=== PATIENT | female | born 1945 | race Caucasian/White ===

== ENCOUNTER → 2018-02-05 11:38 | Outpatient (CLI) | payer MEDICARE, MEDICAID, SELFPAY ==
--- NOTE | 2018-02-05 11:48 | XR_ITS ---
XR shoulder LT min 2V HISTORY: ITS.REASON: LEFT SHOULDER PAIN ORDERING PHYSICIAN: Johnathan Cohen MD PATIENT AGE: 72 years Comparison: None FINDINGS: Hypertrophic changes are present at the acromioclavicular joint with bony spurring projecting inferiorly. There is subacromial stenosis. No fracture or dislocation is evident. No lytic or blastic change. IMPRESSION: Acromioclavicular arthropathy with hypertrophic change and subacromial stenosis which may result in impingement symptomatology. Otherwise negative left shoulder
[2018-02-05 12:22] LABS: Basophils % 0.3 % (0.1-2.0); Eosinophils # 0.1 K/mm3 (0.0-0.4); Eosinophils % 1.8 % (0.1-12.0); Hematocrit 40.5 % (37.0-47.0); Hemoglobin 13.7 g/dL (12.2-16.2); Lymphocytes # 1.5 K/mm3 (0.7-4.5); Lymphocytes % 23.5 K/mm3 (10-50); Mean Corpuscular HGB Conc 33.8 g/dL (31.8-35.4); Mean Corpuscular Hemoglobin 30.2 pg (27.0-31.2); Mean Corpuscular Volume 89.4 fl (81-99); Mean Platelet Volume 8.1 fl (7.4-10.4); Monocytes # 0.4 K/mm3 (0.1-1.0); Monocytes % 5.5 % (1.7-9.3); Neutrophils # 4.3 K/mm3 (1.8-7.8); Neutrophils % 68.8 % (37.0-80.0); Platelet Count 192 K/mm3 (142-424); Red Blood Count 4.54 M/mm3 (4.20-5.40); Red Cell Distribution Width 14.1 % (11.5-17.5); White Blood Count 6.3 K/mm3 (4.8-10.8)
[2018-02-05 13:30] LABS: Alanine Aminotransferase 20 U/L (12-78); Albumin Level 3.3 gm/dL (3.4-5.0); Alkaline Phosphatase 92 U/L (46-116); Anion Gap 13.3 mEq/L (5-15); Aspartate Amino Transferase 20 U/L (15-37); Bilirubin,Total 0.6 mg/dL (0.2-1.0); Blood Urea Nitrogen 24 mg/dL (7-18); Calcium 8.8 mg/dL (8.5-10.1); Carbon Dioxide 26 mmol/L (21.0-32.0); Chloride 105 mmol/L (98-107); Chol/HDL Ratio 3.3 (1-3.5); Cholesterol 127 mg/dL (140-200); Creatinine,Serum 1.06 mg/dL (0.55-1.02); Estimated Glomerular Filt Rate 51 ml/min (>60); Free Thyroxine Index 2.3 ug/dL (5.93-13.13); GFR (African American) 61 ML/MIN (>60); Globulin 3.2 gm/dl (1.3-3.2); Glucose 142 mg/dL (74-106); HDL Cholesterol 38 mg/dL (29-89); LDL Cholesterol 59 mg/dL (0-130); Potassium 4.3 mmoL/L (3.5-5.1); Sodium 140 mmol/L (136-145); T4 (Thyroxine) 7.5 ug/dl (4.7-13.3); Thyroid Stimulating Hormone 0.44 uIU/ml (0.358-3.740); Total Protein,Serum 6.5 gm/dL (6.4-8.2); Triglycerides 150 mg/dL (30-200); Triiodothryronine (T3) Uptake 31 % (31-39); VLDL Cholesterol 30 mg/dL (0-40)
[2018-02-05 15:16] LABS: Hemoglobin A1C 7.1 % (0.0-7.0)
[2018-02-06 18:40] LABS: Vitamin B12 310 pg/mL (232-1245)
== END ==
PROVIDERS: PCP Internal Medicine Adolescent Medicine; Visit Provider Internal Medicine Adolescent Medicine
DX: E03.9 Hypothyroidism, unspecified (principal); E11.42 Type 2 diabetes mellitus with diabetic polyneuropathy; E11.9 Type 2 diabetes mellitus without complications; M25.512 Pain in left shoulder
CPT/HCPCS: 36415; 73030; 80053; 80061; 82607; 83036; 84436; 84443; 84479; 85025

== ENCOUNTER → 2018-02-26 11:43 | Outpatient (CLI) | payer MEDICARE, MEDICAID, SELFPAY | PROVIDERS: PCP Internal Medicine Adolescent Medicine; Visit Provider Internal Medicine Adolescent Medicine | DX: R00.2 Palpitations (principal) | CPT/HCPCS: 93225; 93226 ==

== ENCOUNTER 2018-03-18 13:00 | Outpatient (RCR) | payer MEDICARE, MEDICAID, SELFPAY ==
--- NOTE | 2018-03-05 11:37 | HMH.OTOPEV ---
OT Inpatient Evaluation Rehab OT Outpatient Eval Start: 03/05/18 11:21 Freq: Status: Active Protocol: Document 03/05/18 11:21 TFRY (Rec: 03/05/18 11:37 TFRY [id number]) Electronically Signed By Althea Berry OT 03/05/18 11:21 Outpatient Therapy Subjective History Subjective History THIS IS A 72 YEAR OLD RIGHT HANDED FEMALE REFERRED TO OCCUPATIONAL THERAPY FOR LEFT SHOULDER PAIN. PATIENT REPORTS THAT HER SHOULDER HAS BEEN HURTING FOR THE LAST FEW MONTHS. SHE REPORTS THAT SHE CAN NOT RECALL DOING ANYTHING TO HER SHOULDER. Chief Complaint Pain Symptom Type Ache Sharp Symptoms Relieved By Rest/Positioning Symptoms Aggravated By Physical Activity Prior Functional Limitations None Current Functional Limitations Reaching Lifting Housework Dressing Sleeping Symptom Description Constant and Continuous Level of pain today (0-10) 8 Pain scale - at its best (0-10) 2 Pain scale - at its worst (0-10) 10 Shoulder/Elbow Eval Shoulder Objective Measurements Palpation Tenderness tenderness shoulder exam standard left Shoulder Palpation Findings Tenderness Shoulder ROM Left Shoulder ROM Limitations Pain Shoulder Abduction Active Range of 45 Motion (degrees) Shoulder Abduction Passive Range of 85 Motion (degrees) Shoulder Flexion Active Range of Motion 40 (degrees) Query Text: Shoulder Flexion Passive Range of Motion 90 (degrees) Shoulder External Rotation Active Range 10 of Motion (degrees) Shoulder External Rotation Passive Range 20 of Motion (degrees) Shoulder Internal Rotation Active Range WFL of Motion (degrees) Shoulder Internal Rotation Passive Range WFL of Motion (degrees) pain with active ROM shoulder exam left standard pain with passive ROM shoulder exam left standard decreased ROM shoulder exam standard left Shoulder MMT Shoulder Abduction Strength Grade 2+ Poor+ Shoulder Flexion Strength Grade 2+ Poor+ Shoulder External Rotation Strength 2 Poor Grade Shoulder Internal Rotation Strength 3 Fair Grade Shoulder Strength Patient Testing Sitting Position Shoulder Special Tests im
== END 2018-03-18 13:01 | disposition home or self-care (01) ==
LOC: OT 13:00
PROVIDERS: Family Provider Internal Medicine Adolescent Medicine; PCP Internal Medicine Adolescent Medicine; Visit Provider Internal Medicine Adolescent Medicine
DX: M25.512 Pain in left shoulder (principal)
CPT/HCPCS: 97014; 97110; 97165; G0283

== ENCOUNTER → 2018-04-05 13:39 | Outpatient (CLI) | payer MEDICARE, MEDICAID, SELFPAY ==
--- NOTE | 2018-04-05 14:16 | MR_ITS ---
MR shoulder LT wo con Ordering Physician: Johnathan Cohen MD Patient Age: 72 years: Female HISTORY: ITS.REASON: LT SHOULDER PAIN Left anterior shoulder pain unable to left arm symptoms 2 months TECHNIQUE: COMPARISON :Plain films left shoulder 02/05/2018 FINDINGS Rotator cuff tears and abnormalities:. Areas of focal rotator cuff tear and signal abnormality but without prominent tendon retraction as of yet Supraspinatus tendon,:.. Significant Tear at its insertion. Likely full-thickness tear component but the thin superior fibers may remain intact along with prominent tendon retraction as of yet. Supraspinatus tendon thickening and prominent tendinopathy associated. Associated minimal fluid at subdeltoid subacromial bursa along with small joint effusion. Subscapularis tendon. Prominent Thickened reflecting generous tendinopathy. Interstitial tear and undersurface tear at its insertion, with likely small full-thickness component but no prominent tendon retraction subscapularis. Most pronounced insertional erosions & osseous irregularities seen at this region beneath subscapularis insertion- Infraspinatus tendon. Insertional erosions mild tendinopathy at critical zone and insertion. Possible partial undersurface tear here at insertion. Teres minor component of rotator cuff. Intact &. Unremarkable ---- .. Biceps tendon demonstrates abnormal increased interstitial signal as it passes above the bicipital groove and appears mildly enlarged. Suspect biceps tendinopathy here as well. Prominent AC joint hypertrophy & arthropathy fluid at the AC joint. The bulbous hypertrophic AC joint encroaches impinges and indents the supraspinatus as it passes beneath this area at medial outlet. There is downward sloping of small acromion with narrowing of the subacromial space to 6 mm or less in some regions.q, subacromial stenosis. Osseous glenoid intact. The posterior labrum grossly intact. Anterior labrum intact with some possible mild fraying & degeneration. IMPRESSION: ...... 1. Rotator cuff tear & tendinopathy but without prominent tendon retraction as of yet. .... Prominent tendinopathy and with full-thickness tear at the Supraspinatus Tendon insertion. ... Also prominent tendinopathy with tear involving superior margin of Subscapularis Tendon Prominent reactive bone changes and insertional erosions at the subscapularis insertion 2. Biceps tendinopathy 3. Prominent AC joint arthropathy and hypertrophy which encroaches upon the supraspinatus tendon as it passes at medial outlet. 4. Subacromial stenosis
== END ==
PROVIDERS: Family Provider Internal Medicine Adolescent Medicine; PCP Internal Medicine Adolescent Medicine; Visit Provider Internal Medicine Adolescent Medicine
DX: M25.512 Pain in left shoulder (principal)
CPT/HCPCS: 73221

== ENCOUNTER → 2019-05-25 11:19 | Outpatient (CLI) | payer MEDICARE, SELFPAY ==
[2019-05-25 12:15] LABS: Basophils % 0.5 % (0.1-2.0); Eosinophils # 0.1 K/mm3 (0.0-0.4); Eosinophils % 2.3 % (0.1-12.0); Hematocrit 36.8 % (37.0-47.0); Hemoglobin 12.1 g/dL (12.2-16.2); Lymphocytes # 1.6 K/mm3 (0.7-4.5); Mean Corpuscular HGB Conc 32.8 g/dL (31.8-35.4); Mean Corpuscular Hemoglobin 29.3 pg (27.0-31.2); Mean Corpuscular Volume 89.5 fl (81-99); Monocytes # 0.4 K/mm3 (0.1-1.0); Monocytes % 7.5 % (1.7-9.3); Neutrophils # 2.8 K/mm3 (1.8-7.8); Neutrophils % 57.7 % (37.0-80.0); Platelet Count 217 K/mm3 (142-424); Red Blood Count 4.11 M/mm3 (4.20-5.40); Red Cell Distribution Width 15.5 % (11.5-17.5); White Blood Count 4.8 K/mm3 (4.8-10.8)
[2019-05-25 12:28] LABS: Hemoglobin A1C 8.5 % (0.0-7.0)
[2019-05-25 14:45] LABS: Alanine Aminotransferase 22 U/L (12-78); Albumin Level 3.1 gm/dL (3.4-5.0); Alkaline Phosphatase 96 U/L (46-116); Anion Gap 13.4 mEq/L (5-15); Aspartate Amino Transferase 17 U/L (15-37); Bilirubin,Total 0.4 mg/dL (0.2-1.0); Blood Urea Nitrogen 19 mg/dL (7-18); Calcium 8.7 mg/dL (8.5-10.1); Carbon Dioxide 26 mmol/L (21.0-32.0); Chloride 108 mmol/L (98-107); Chol/HDL Ratio 2.9 (1-3.5); Cholesterol 95 mg/dL (140-200); Creatinine,Serum 1.17 mg/dL (0.55-1.02); Estimated Glomerular Filt Rate 45 ml/min (>60); GFR (African American) 55 ML/MIN (>60); Globulin 3.1 gm/dl (1.3-3.2); Glucose 102 mg/dL (74-106); HDL Cholesterol 33 mg/dL (29-89); LDL Cholesterol 35 mg/dL (0-130); Potassium 4.4 mmoL/L (3.5-5.1); Sodium 143 mmol/L (136-145); Thyroid Stimulating Hormone 1.85 uIU/ml (0.358-3.740); Total Protein,Serum 6.2 gm/dL (6.4-8.2); Triglycerides 134 mg/dL (30-200); VLDL Cholesterol 27 mg/dL (0-40)
[2019-05-27 11:43] LABS: Vitamin B12 324 pg/mL (232-1245)
== END ==
PROVIDERS: Visit Provider Internal Medicine Adolescent Medicine
DX: E11.42 Type 2 diabetes mellitus with diabetic polyneuropathy (principal); E03.9 Hypothyroidism, unspecified
CPT/HCPCS: 36415; 80053; 80061; 82607; 83036; 84443; 85025

== ENCOUNTER 2019-10-20 10:03 | Inpatient (IN) ==
[2019-10-20 10:34] LABS: Basophils % 0.2 % (0.1-2.0); Eosinophils # 0.2 K/mm3 (0.0-0.4); Eosinophils % 1.6 % (0.1-12.0); Hematocrit 42.3 % (37.0-47.0); Hemoglobin 13.4 g/dL (12.2-16.2); Lymphocytes # 2.5 K/mm3 (0.7-4.5); Lymphocytes % 18.6 % (10-50); Mean Corpuscular HGB Conc 31.8 g/dL (31.8-35.4); Mean Corpuscular Volume 93.8 fl (81-99); Monocytes # 0.6 K/mm3 (0.1-1.0); Monocytes % 4.3 % (1.7-9.3); Neutrophils # 10.1 K/mm3 (1.8-7.8); Neutrophils % 75.3 % (37.0-80.0); Platelet Count 306 K/mm3 (142-424); Red Blood Count 4.51 M/mm3 (4.20-5.40); Red Cell Distribution Width 14.8 % (11.5-17.5); White Blood Count 13.4 K/mm3 (4.8-10.8)
[2019-10-20 10:52] LABS: Alanine Aminotransferase 30 U/L (12-78); Albumin Level 3.2 gm/dL (3.4-5.0); Albumin/Globulin Ratio 0.9 (1.1-1.8); Alkaline Phosphatase 85 U/L (46-116); Anion Gap 19.1 mEq/L (5-15); Aspartate Amino Transferase 20 U/L (15-37); Bilirubin,Total 0.5 mg/dL (0.2-1.0); Blood Urea Nitrogen 28 mg/dL (7-18); Calcium 8.7 mg/dL (8.5-10.1); Carbon Dioxide 21 mmol/L (21.0-32.0); Chloride 106 mmol/L (98-107); Globulin 3.5 gm/dl (1.3-3.2); Glucose 277 mg/dL (74-106); Sodium 142 mmol/L (136-145); Thyroid Stimulating Hormone 1.27 uIU/ml (0.358-3.740); Total Protein,Serum 6.7 gm/dL (6.4-8.2)
[2019-10-20 11:13] LABS: Microscopic, Urine URINE MICROSCOPIC (MICROSCOPIC)
[2019-10-20 11:16] LABS: Appearance,Urine SL CLOUDY (Clear); Bilirubin,Urine Negative (Negative); Blood, Urine 3+ (Negative); Color,Urine YELLOW (Yellow); Glucose,Urine (UA) Negative (Negative); Ketones,Urine Negative (Negative); Leukocyte Esterase,Urine 2+ (Negative); PH,Urine 5.5 (5.0-8.5); Protein,Urine 2+ (Negative); Specific Gravity, Urine >= 1.030 (1.005-1.030); Urobilinogen,Urine 0.2 EU/dl (0.2)
[2019-10-20 11:26] LABS: Bacteria,Urine 1+ /lpf; Squamous Epithelial Cell,Urine Occasional #/hpf (0-5)
--- NOTE | 2019-10-20 12:24 | Emergency Department Note ---
ED Disposition Clinical Impression: Sepsis, UTI (urinary tract infection), SVT (supraventricular tachycardia) Disposition: Admitted as Observation Condition on Discharge: Fair Additional Instructions: admit to Dr. Mejía Referrals: Ye Mejía MD [Primary Care Provider] - - Critical Care Critical Care Time: Yes Attestation: On 10/20/19, the high probability of a clinically significant, sudden or life threatening deterioration of the following system(s) required my full and direct attention, intervention and personal management. The time I documented below is in addition to time spent performing reported procedures but includes the following listed in this critical care notation. Total Critical Care Time: 25 Vital system(s) involved:: Circulatory Failure My critical care processes included: Assessment & monitoring of V/S Medical Decision Making - Gibran Inquiry Pt receiving controlled substance: No Gibran was queried for this patient: No Vital Signs: 10/20/19 10:04 10/20/19 10:30 10/20/19 11:00 Temperature 98.2 F Temperature Source Oral Pulse Rate [Right] 158 H 70 84 Respiratory Rate 20 20 Blood Pressure [Right Arm] 90/61 L 120/52 L 112/52 L Blood Pressure Mean [Right Arm] 70 74 72 Blood Pressure Position [Right Arm] Sitting 02 Sat by Pulse Oximetry 94 L 94 L Oxygen Delivery Method Room Air Room Air 10/20/19 11:07 10/20/19 11:29 10/20/19 12:00 Temperature Temperature Source Pulse Rate [Right] 80 82 82 Respiratory Rate 20 20 20 Blood Pressure [Right Arm] 109/69 L 129/52 L 114/41 L Blood Pressure Mean [Right Arm] 82 77 65 Blood Pressure Position [Right Arm] 02 Sat by Pulse Oximetry 94 L 91 L 96 Oxygen Delivery Method Room Air - Lab Data Lab Results 10/20/19 10:20: WBC 13.4 H, RBC 4.51, Hgb 13.4, Hct 42.3, MCV 93.8, MCH 29.8, MC HC 31.8, RDW 14.8, Plt Count 306, MPV 8.0, Neut % (Auto) 75.3, Lymph % (Auto) 18.6, [place] % (Auto) 4.3, Eos % (Auto) 1.6, Baso % (Auto) 0.2, Neut # (Auto) 10.1 H, Lymph # (Auto) 2.5, [place] # (Auto) 0.6, Eos # (Auto) 0.2, Baso # (Auto) 0.0 10/20/19 10:20: Sodium 142, Potassium 4.1, Chloride 106, Carbon Dioxide 21, Anion Gap 19.1 H, BUN 28 H, Creatinine 1.80 H, Estimated Creat Clear 39, Estimated GFR 27 L, Est GFR ( Amer) 33 L, Glucose 277 H, Calcium 8.7, Total Bilirubin 0.5, AST 20, ALT 30, Alkaline Phosphatase 85, Troponin I < 0.02, Total Protein 6.7, Albumin 3.2 L, Globulin 3.5 H, Albumin/Globulin Ratio 0.9 L, TSH 1.27 D, Thyroxine (T4) 7.5 10/20/19 10:20: Lactate 4.6 H 10/20/19 10:20: B-Natriuretic Peptide 227 H 10/20/19 11:00: Urine Color Yellow, Urine Appearance Sl cloudy, Urine pH 5.5, Ur Specific [place] >= 1.030, Urine Protein 2+, Urine Glucose (UA) Negative, Urine Ketones Negative, Urine Blood 3+, Urine Nitrate Positive, Urine Bilirubin Negative, Urine Urobilinogen 0.2, Ur Leukocyte Esterase 2+ A, Urine RBC 10-20, Urine WBC 5-10, Ur Squamous Epith Cells Occasional, Urine Bacteria 1+ Result diagrams: 10/20/19 10:20 10/20/19 10:20 Orders (Tests/Meds): ED MEDICATIONS Generic Name Dose Route Start Last Admin Trade Name Freq PRN Reason Stop Dose Admin Sodium Chloride 2,720 mls @ 1,360 mls/hr 10/20/19 10:50 10/20/19 10:30 Sod Chlor 0.9% 1000ml Bag 30 ml/kg infuse over 2 hr (2720 ml) 10/20/19 12:49 1,360 mls/hr IV Administration .Q2H ONE Ceftriaxone Sodium 1 gm/ 50 mls @ 100 mls/hr 10/20/19 11:15 10/20/19 11:08 Sodium Chloride IV 11/03/19 11:14 100 mls/hr Q24H BEATRIZ Administration Protocol Discontinued Medications Generic Name Dose Route Start Last Admin Trade Name Freq PRN Reason Stop Dose Admin Diltiazem HCl 10 mg 10/20/19 10:27 10/20/19 10:30 Cardizem 125mg/25ml Vial IVP 10/20/19 10:28 10 mg ONCE ONE Administration Sodium Chloride 1,000 mls @ 999 mls/hr 10/20/19 10:30 10/20/19 10:52 Sod Chlor 0.9% 1000ml Bag IV 10/20/19 11:30 Not Given .Q1H1M BEATRIZ ORDERS Category Date Time Status Troponin I Q3H Lab 10/20/19 13:30 Ordered Troponin I Q3H Lab 10/20/19 16:30 Ordered Blood Culture Stat Micro 10/20/19 10:20 Received Urine Culture Stat Micro 10/20/19 11:00 Received Medical Decision Narrative: Patient was hypotensive and tachycardic when she presented to the ED. Given a fluid bolus followed by bolus of 20 mg of Cardizem IV. Her rate did convert her heart rate that went back down to 73 bpm and blood pressure improved to 120/70. Assessment of the patient her card cardiopulmonary exam was within normal limits. Patient is doing much better. Physical exam after the admitted initial treatment is back to normal. General Adult HPI - General Chief complaint: Weakness Stated complaint: weak,blood pressure problem Time Seen by Provider: 10/20/19 10:03 Mode of Arrival: Wheelchair Source of Information: Patient, Significant Other, Relative Limitations: No Limitations Description of Symptoms (Recalled from ER Triage Doc. by RN): PT SENT FROM DR LEMUS OFFICE FOR LOW B/P AND WEAKNESS. PT STATES SHE HAS DIARRHEA, VOMITING, AND COUGH FOR 3 DAYS. - History of Present Illness HPI narrative: Her primary care's office this morning and they were unable to obtain a blood pressure. He looked acutely ill in office and was sent here for evaluation. The ED her blood pressure was 88/16. And she was presently in SVT with a heart rate of 166 otherwise patient states that she has been fatigued more than usual over the last 3 to 4 days. Had episode of nausea and vomiting as well. Denies any pain. States that her feet were turning purple. No history was obtained by relatives. Denied any other symptoms. no recent fevers. Onset (ago): day(s) Severity: severe Severity scale (1-10): 8 Consistency: constant Relieving factors: none Exacerbating factors: none Associated symptoms: nausea/vomiting Treatments prior to arrival: none - Related Data Home Medications Medication Instructions Recorded Confirmed Levothyroxine Sodium 12.5 mcg PO DAILY 10/20/19 10/20/19 [Levothyroxine 25mcg (0.025mg) Tab] carvediloL [Carvedilol 6.25mg Tab] 6.25 mg PO DAILY 10/20/19 10/20/19 Allergies Allergy/AdvReac Type Severity Reaction Status Date / Time celecoxib [From CELEBREX] Allergy Mild Verified 10/20/19 10:29 naproxen [NAPROXEN] Allergy Mild Verified 10/20/19 10:29 sertraline [SERTRALINE] Allergy Mild Verified 10/20/19 10:29 latex [LATEX] Allergy Unknown Verified 10/20/19 10:29 valdecoxib [VALDECOXIB] Allergy Unknown Verified 10/20/19 10:29 [facility] History - Hepatitis A Screen Drug use history?: No High risk sexual behaviors?: No History of sexually transmitted infection?: No Currently employed?: No Childcare worker?: No Do you have indoor plumbing?: Yes Do you have electricity?: Yes Attestation statement:: This patient has been screened for Hepatitis A risk factors. I have reviewed the patient's past medical history: Yes ROS Obtained: Yes All systems reviewed & no additional complaints - Constitutional Constitutional: Reports system reviewed and no additional complaints, except as docu - Eyes Eyes: Reports system reviewed and no additional complaints, except as docu - ENT Ears, Nose, Mouth, and Throat: Reports system reviewed and no additional complaints, except as docu - Cardiovascular Cardiovascular: Reports system reviewed and no additional complaints, except as docu - Respiratory Respiratory: Yes system reviewed and no additional complaints, except as docu - Gastrointestinal Gastrointestingal: Reports: system reviewed and no additional complaints, except as docu - Genitourinary Male Genitourinary: Reports system reviewed and no additional complaints, except as docu Female Genitourinary: Reports system reviewed and no additional complaints, except as docu - Musculoskeletal Musculoskeletal: Reports system reviewed and no additional complaints, except as docu - Integumentary/Breasts Skin/Breast: Reports system reviewed and no additional complaints, except as docu - Neurologic Neurologic: Reports system reviewed and no additional complaints, except as docu - Endocrine Endocrine: Reports system reviewed and no additional complaints, except as docu - Hematologic/Lymphatic Henatologic/Lymphatic: Reports system reviewed and no additional complaints, except as docu - Allergic/Immunologic Allergic/Immunologic: Reports system reviewed and no additional complaints, except as docu Physical Exam - General General appearance: alert, lethargic - Head Head exam: atraumatic - Eye Eye exam: Present: normal appearance, PERRL, EOMI - ENT ENT exam: Present: normal exam - Neck Neck exam: Present: normal inspection - Chest Chest inspection: Present: normal inspection - Respiratory Respiratory exam: Present: normal lung sounds bilaterally - Cardiovascular Cardiovascular exam: Present: tachycardia, irregular rhythm - Abdominal Exam Abdominal exam: Present: soft - Extremities Exam Extremities exam: Present: other - Back Exam Back exam: Present: normal inspection - Neurological Exam Neurological exam: Present: alert - Psychiatric Psychiatric exam: Present: normal affect - Lymphatic Lymphatic Findings: no adenopathy
--- NOTE | 2019-10-20 13:59 | Pharmacy Consult Notes ---
[facility] Pharmacy VTE Monitoring - Patient Demographics Admission date: 10/20/19 Report Date: 10/20/19 Time: 13:59 Allergies/Adverse Reactions: Patient Allergies celecoxib [From CELEBREX] Allergy (Mild, Verified 10/20/19 10:29) naproxen [NAPROXEN] Allergy (Mild, Verified 10/20/19 10:29) sertraline [SERTRALINE] Allergy (Mild, Verified 10/20/19 10:29) latex [LATEX] Allergy (Unknown, Verified 10/20/19 10:29) valdecoxib [VALDECOXIB] Allergy (Unknown, Verified 10/20/19 10:29) Height: 1.68 m Weight: 90.718 kg Patient Problems: Current Active Problems Sepsis (Acute) UTI (urinary tract infection) (Acute) SVT (supraventricular tachycardia) (Acute) - VTE Risk Labs: VTE Related Lab Results Hgb 13.4 g/dL (12.2-16.2) 10/20/19 10:20 Hct 42.3 % (37.0-47.0) 10/20/19 10:20 Plt Count 306 K/mm3 (142-424) 10/20/19 10:20 BUN 28 mg/dL (7-18) H 10/20/19 10:20 Creatinine 1.80 mg/dL (0.55-1.02) H 10/20/19 10:20 Estimated Creat Clear 39 mL/min (50-200) 10/20/19 10:20 - Prophylaxis VTE Prophylaxis Ordered?: Yes Types of VTE Prophylaxis: TEDS Knee High Location of Applied Device: Bilateral Lower Extremeties
--- NOTE | 2019-10-20 17:22 | History & Physical Report ---
*Admission Date: 10/20/19 *Chief complaint: hypotension, cough, weakness *History of present illness: Ms. Thomas is a 73-year-old female who presented to clinic this morning with her daughter due to fatigue, worsening cough over the past week, and diarrhea for the past few days. On initial assessment we were unable to obtain a blood pressure and so she was transferred to the ER emergently for further assessment and work-up. In the ER her initial blood pressure was 88/16 and she was in SVT with a heart rate of approximately 160. She was given a fluid bolus and 20 mg of IV Cardizem. She responded briskly with conversion to normal sinus rhythm and improvement in her blood pressure to approximately 120/70. Further work-up showed lab abnormalities concerning for elevated lactate, kidney dysfunction, urine concerning for UTI, and chest x-ray concerning for CHF exacerbation with increased pulmonary vasculature and cephalization left worse than right and bilateral lower lung field opacification. Admitted to medicine for further management of her acute conditions. [facility] History I have reviewed the patient's past medical history: Yes Medical History: Reports:: Diabetes Mellitus Type 1, Hyperlipidemia, Peripheral Vascular Disease Denies:: MRSA *Have you ever received a pneumonia vaccine?: Yes *Have you received a flu vaccine this season?: Yes Comment:: hyperthyroidism Other Surgeries: Yes: Cholecystectomy, Thyroidectomy, Tubal Ligation - *Social History Smoking Status: Never smoker Alcohol Intake: never *Occupational Status:: retired Household Members: spouse *Travel in the last 8 weeks: None Family Hx:: Unable to obtain Review of Systems - Review of Systems Review of systems:: pertinent systems reviewed and negative unless documented below (13 point review of systems performed, pertinent negatives and positives as per HPI) Meds Home Medications Medication Instructions Recorded Confirmed Type Atorvastatin Calcium [Atorvastatin 20 mg PO HS 10/20/19 10/20/19 History 20mg Tab] Insulin Glargine,Hum.rec.anlog 50 unit SQ DAILY 10/20/19 10/20/19 History [Toujeo Max Solostar] Insulin Regular, Human [Novolin R 0 unit SQ NEEDED PRN 10/20/19 10/20/19 History Flexpen] Levothyroxine Sodium 12.5 mcg PO DAILY 10/20/19 10/20/19 History [Levothyroxine 25mcg (0.025mg) Tab] carvediloL [Carvedilol 6.25mg Tab] 6.25 mg PO BID 10/20/19 10/20/19 History Allergies Allergy/AdvReac Type Severity Reaction Status Date / Time celecoxib [From CELEBREX] Allergy Mild Verified 10/20/19 10:29 naproxen [NAPROXEN] Allergy Mild Verified 10/20/19 10:29 sertraline [SERTRALINE] Allergy Mild Verified 10/20/19 10:29 latex [LATEX] Allergy Unknown Verified 10/20/19 10:29 valdecoxib [VALDECOXIB] Allergy Unknown Verified 10/20/19 10:29 metformin AdvReac Severe Diarrhea Verified 10/20/19 14:12 Exam Vital signs and Labs for Last 24 Hours: Temp Pulse Resp BP Pulse Ox 98.1 F 84 18 107/72 L 94 L 10/20/19 14:00 10/20/19 17:00 10/20/19 17:00 10/20/19 17:00 10/20/19 17:00 Laboratory Results - last 24 hr 10/20/19 10:20: WBC 13.4 H, RBC 4.51, Hgb 13.4, Hct 42.3, MCV 93.8, MCH 29.8, MCHC 31.8, RDW 14.8, Plt Count 306, MPV 8.0, Neut % (Auto) 75.3, Lymph % (Auto) 18.6, [place] % (Auto) 4.3, Eos % (Auto) 1.6, Baso % (Auto) 0.2, Neut # (Auto) 10.1 H, Lymph # (Auto) 2.5, [place] # (Auto) 0.6, Eos # (Auto) 0.2, Baso # (Auto) 0.0 10/20/19 10:20: Sodium 142, Potassium 4.1, Chloride 106, Carbon Dioxide 21, Anion Gap 19.1 H, BUN 28 H, Creatinine 1.80 H, Estimated Creat Clear 39, Estimated GFR 27 L, Est GFR ( Amer) 33 L, Glucose 277 H, Calcium 8.7, Total Bilirubin 0.5, AST 20, ALT 30, Alkaline Phosphatase 85, Troponin I < 0.02, Total Protein 6.7, Albumin 3.2 L, Globulin 3.5 H, Albumin/Globulin Ratio 0.9 L, TSH 1.27 D, Thyroxine (T4) 7.5 10/20/19 10:20: Lactate 4.6 H 10/20/19 10:20: B-Natriuretic Peptide 227 H 10/20/19 11:00: Urine Color Yellow, Urine Appearance Sl cloudy, Urine pH 5.5, Ur Specific [place] >= 1.030, Urine Protein 2+, Urine Glucose (UA) Negative, Urine Ketones Negative, Urine Blood 3+, Urine Nitrate Positive, Urine Bilirubin Negative, Urine Urobilinogen 0.2, Ur Leukocyte Esterase 2+ A, Urine RBC 10-20, Urine WBC 5-10, Ur Squamous Epith Cells Occasional, Urine Bacteria 1+ 10/20/19 14:50: Lactate 1.1 I & O for Last 24 hours: Intake & Output 10/17/19 10/18/19 10/19/19 10/20/19 23:59 23:59 23:59 23:59 Intake Total 3500 / 3500 Balance 3500 / 3500 Weight 110.421 kg - Constitutional no acute distress, obese, chronically ill appearing - *Routine HEENT Exam Head: Present: normocephalic Eye: Present: EOMI, PERRL ENT: Present: mucous membranes moist - *Routine Neck Exam Present: supple. Absent: lymphadenopathy - *Routine Respiratory Exam Comments: Good air movement bilaterally, fine crackles bilateral posterior bases with no wheeze or rhonchi - *Routine Cardiovascular Exam Present: RRR - *Routine Abdominal Exam Present: soft, normoactive bowel sounds, tenderness (Diffuse nonfocal tenderness, no CVA tenderness) - *Routine Extremities Exam Absent: cyanosis, clubbing, edema - *Routine Skin Exam Present: cyanosis (Bilateral feet; present initially on exam in clinic, resolved after fluid resuscitation and improvement in heart rate), warm. Absent: rash Comments: Bruise with swelling and hematoma medial right lower extremity approximately 3 cm in diameter - *Routine Neurological Exam Present: alert, oriented X3 Assessment and Plan (1) History of hyperthyroidism Current visit: Yes Status: Chronic Category: Medical Code(s): Z86.39 - Personal history of other endocrine, nutritional and metabolic disease Given history of hyperthyroidism, status post PTU and partial thyroidectomy, in the setting of SVT will obtain TSH and thyroid labs to assess for abnormalities as potential underlying cause for her tachyarrhythmia (2) Insulin dependent diabetes mellitus Current visit: Yes Status: Chronic Category: Medical Code(s): E11.9 - Type 2 diabetes mellitus without complications; Z79.4 - terminal superintendent (current) use of insulin Continue insulin regimen with basal and sliding scale. Diabetic diet. A1c pending in the morning (3) SVT (supraventricular tachycardia) Current visit: Yes Status: Acute Category: Medical Code(s): I47.1 - Supraventricular tachycardia Presented with hypotension and tachycardia. Converted with IV dose of diltiazem. Improved with volume resuscitation. Suspect secondary to infection and sepsis. Will monitor on telemetry overnight (4) Sepsis Current visit: Yes Status: Acute Category: Medical Code(s): A41.9 - Sepsis, unspecified organism Met criteria with leukocytosis, tachycardia, source of infection. Antibiotics and cultures per protocol, fluids per protocol. (5) UTI (urinary tract infection) Current visit: Yes Status: Acute Qualifiers: Urinary tract infection type: acute pyelonephritis Qualified Code(s): N10 - Acute pyelonephritis Category: Medical Code(s): N39.0 - Urinary tract infection, site not specified In the setting of nausea, vomiting, diarrhea, tachyarrhythmia, leukocytosis. Broad-spectrum antibiotics. Blood and urine culture pending. Will monitor for improvement. (6) Acute kidney injury Current visit: Yes Status: Acute Category: Medical Code(s): N17.9 - Acute kidney failure, unspecified Suspect due to SVT, hypotension, prerenal status. Monitor for improvement with fluid resuscitation and correction of tachyarrhythmia - Assessment and plan all Dx Assessment and Plan for all problems:: 73-year-old chronically ill female who presented with SVT, suspected pyelonephritis, hypotension. Improvement with fluids and initiation of antibiotics. Monitor on telemetry overnight. Prognosis poor, condition guarded.
[2019-10-21 05:56] LABS: Basophils % 0.2 % (0.1-2.0); Eosinophils # 0.1 K/mm3 (0.0-0.4); Eosinophils % 0.9 % (0.1-12.0); Hematocrit 31.6 % (37.0-47.0); Lymphocytes # 1.8 K/mm3 (0.7-4.5); Lymphocytes % 26.5 % (10-50); Mean Corpuscular HGB Conc 32.8 g/dL (31.8-35.4); Mean Corpuscular Volume 90.7 fl (81-99); Mean Platelet Volume 8.8 fl (7.4-10.4); Monocytes # 0.4 K/mm3 (0.1-1.0); Monocytes % 6.3 % (1.7-9.3); Neutrophils # 4.4 K/mm3 (1.8-7.8); Neutrophils % 66.1 % (37.0-80.0); Platelet Count 174 K/mm3 (142-424); Red Blood Count 3.49 M/mm3 (4.20-5.40); Red Cell Distribution Width 14.8 % (11.5-17.5); White Blood Count 6.6 K/mm3 (4.8-10.8)
[2019-10-21 06:06] LABS: Albumin Level 2.4 gm/dL (3.4-5.0); Albumin/Globulin Ratio 0.8 (1.1-1.8); Anion Gap 13.5 mEq/L (5-15); Bilirubin,Total 0.4 mg/dL (0.2-1.0); Globulin 2.9 gm/dl (1.3-3.2); Total Protein,Serum 5.3 gm/dL (6.4-8.2)
[2019-10-21 06:18] LABS: Free Thyroxine Index 2.3 ug/dL (5.93-13.13); Thyroid Stimulating Hormone 0.35 uIU/ml (0.358-3.740)
[2019-10-21 06:32] LABS: Hemoglobin 10.4 g/dL (12.2-16.2)
[2019-10-21 06:33] LABS: Calcium 7.4 mg/dL (8.5-10.1)
--- NOTE | 2019-10-21 08:17 | Consult Report ---
History of Present Illness Consult date: 10/21/19 Requesting physician: Ye Mejía Consult reason: atrial fibrillation Chief complaint: A. fib with RVR vs SVT Additional Medical History:: 1. DM, diagnosed >20 yrs ago, insulin treated 2. General debility 3. FH of CAD in father 4. History of HTN A. Echo, 09/2016, LVEF greater than 55% with no wall motion abnormalities. Mild mitral annular calcification without MVP. Trace MR noted. Moderate aortic valve calcification with no regurgitation noted. 5. History of hyperthyroidism A. History of PTU therapy and partial thyroidectomy History of present illness: 73-year-old white female with longstanding diabetes presented to primary care office for evaluation of 1 week history of weakness and fatigue. Patient also relates intermittent episodes of fast heart rates which she could feel in her abdomen with associated discomfort into the upper chest and neck. Symptoms have even awoken her from sleep. 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 Patient denies any syncope or near syncope but has felt weak and fatigued. Patient's pulse in the office was noted to be thready with a tachycardic rate and was sent to the ER for further evaluation. EKG in the ER was read as an SVT but may have been A. fib with RVR with rate in the 160 bpm range. Patient's blood pressure was systolically was in the 80s and labs revealed evidence of UTI and dehydration. After IV fluids patient did convert to sinus rhythm on EKG but then later on did have an episode of atrial fibrillation with a slower rate. Cardiology consulted for evaluation of arrhythmia. Patient denies any prior history of cardiology work-up. She denies history of tobacco use. Patient's thyroid panel is inconclusive over the last 2 draws but seems to indicate some hyperthyroidism at this time. [facility] History Medical History: Reports:: Diabetes Mellitus Type 1, Hyperlipidemia, Peripheral Vascular Disease Denies:: MRSA *Have you ever received a pneumonia vaccine?: Yes *Have you received a flu vaccine this season?: Yes Other Surgeries: Yes: Cholecystectomy, Thyroidectomy, Tubal Ligation - *Social History Smoking Status: Never smoker Alcohol Intake: never *Occupational Status:: retired Household Members: spouse *Travel in the last 8 weeks: None Family Hx:: Unable to obtain Meds Home Medications Medication Instructions Recorded Confirmed Type Atorvastatin Calcium [Atorvastatin 20 mg PO HS 10/20/19 10/20/19 History 20mg Tab] Insulin Glargine,Hum.rec.anlog 50 unit SQ DAILY 10/20/19 10/20/19 History [Spencer Edwardsaaron] Insulin Regular, Human [Novolin R 0 unit SQ NEEDED PRN 10/20/19 10/20/19 H istory Flexpen] Levothyroxine Sodium 12.5 mcg PO DAILY 10/20/19 10/20/19 History [Levothyroxine 25mcg (0.025mg) Tab] carvediloL [Carvedilol 6.25mg Tab] 6.25 mg PO BID 10/20/19 10/20/19 History Allergies Allergy/AdvReac Type Severity Reaction Status Date / Time celecoxib [From CELEBREX] Allergy Mild Verified 10/20/19 10:29 naproxen [NAPROXEN] Allergy Mild Verified 10/20/19 10:29 sertraline [SERTRALINE] Allergy Mild Verified 10/20/19 10:29 latex [LATEX] Allergy Unknown Verified 10/20/19 10:29 valdecoxib [VALDECOXIB] Allergy Unknown Verified 10/20/19 10:29 metformin AdvReac Severe Diarrhea Verified 10/20/19 14:12 Review of Systems - Review of Systems Review of systems:: pertinent systems reviewed and negative unless documented below - Constitutional Reports malaise, Reports weakness - *Cardiovascular Reports chest pain, Reports fast heart rate - *Respiratory Reports cough, Reports shortness of breath - *Gastrointestinal Reports loose stools, Reports nausea, Reports vomiting - *Genitourinary Denies blood in urine - *Musculoskeletal Reports joint pain, Reports back pain - *Neurologic Reports weakness Exam Vital signs and Labs for Last 24 Hours: Temp Pulse Resp BP Pulse Ox 98.4 F 71 18 143/66 H 96 10/20/19 20:00 10/21/19 06:00 10/20/19 20:00 10/21/19 06:00 10/21/19 06:00 Laboratory Results - last 24 hr 10/20/19 10:20: WBC 13.4 H, RBC 4.51, Hgb 13.4, Hct 42.3, MCV 93.8, MCH 29.8, MCHC 31.8, RDW 14.8, Plt Count 306, MPV 8.0, Neut % (Auto) 75.3, Lymph % (Auto) 18.6, [place] % (Auto) 4.3, Eos % (Auto) 1.6, Baso % (Auto) 0.2, Neut # (Auto) 10.1 H, Lymph # (Auto) 2.5, [place] # (Auto) 0.6, Eos # (Auto) 0.2, Baso # (Auto) 0.0 10/20/19 10:20: Sodium 142, Potassium 4.1, Chloride 106, Carbon Dioxide 21, Anion Gap 19.1 H, BUN 28 H, Creatinine 1.80 H, Estimated Creat Clear 39, Estimated GFR 27 L, Est GFR ( Amer) 33 L, Glucose 277 H, Calcium 8.7, Total Bilirubin 0.5, AST 20, ALT 30, Alkaline Phosphatase 85, Troponin I < 0.02, Total Protein 6.7, Albumin 3.2 L, Globulin 3.5 H, Albumin/Globulin Ratio 0.9 L, TSH 1.27 D, Thyroxine (T4) 7.5 10/20/19 10:20: Lactate 4.6 H 10/20/19 10:20: B-Natriuretic Peptide 227 H 10/20/19 11:00: Urine Color Yellow, Urine Appearance Sl cloudy, Urine pH 5.5, Ur Specific [place] >= 1.030, Urine Protein 2+, Urine Glucose (UA) Negative, Urine Ketones Negative, Urine Blood 3+, Urine Nitrate Positive, Urine Bilirubin Negative, Urine Urobilinogen 0.2, Ur Leukocyte Esterase 2+ A, Urine RBC 10-20, U rine WBC 5-10, Ur Squamous Epith Cells Occasional, Urine Bacteria 1+ 10/20/19 13:19: POC Glucose 212 H 10/20/19 14:50: Lactate 1.1 10/20/19 18:40: Stl Aeromonas (PCR) Not detected, Stl C. cayetanensis PCR Not detected, Stool Rotavirus (PCR) Not detected, Stl Adenov F 40/41 PCR Not detected, Stool Astrovirus (PCR) Not detected, Stool Campylobacter PCR Not detected, Stl C.difficile Tox PCR Not detected, Stool Cryptosporidium PCR Not detected, Stl E.coli Shiga Tox PCR Not detected, Stool E coli O157 PCR Not detected, Stl Enterotoxigenic E PCR Not detected, Stool EPEC (PCR) Not detected, Stool EAEC (PCR) Not detected, Stl E. histolytica PCR Not detected, Stool Giardia Lamblia PCR Not detected, Stool Salmonella PCR Not detected, Stool Sapovirus (PCR) Not detected, Stl P. shigelloides PCR Not detected, Stl Shigella/EIEC PCR Not detected, St Y.enterocolitica PCR Not detected, Stool Vibrio (PCR) Not detected, Stl Vibrio cholerae PCR Not detected, Stl Norovirus GI/GII PCR Not detected 10/20/19 20:36: POC Glucose 256 H 10/21/19 05:24: POC Glucose 161 H 10/21/19 05:42: TSH 0.35 L D, Free T4 Index 2.3 L, Thyroxine (T4) 5.8, T3 Uptake 40 H 10/21/19 05:42: WBC 6.6 D, RBC 3.49 L, Hgb 10.4 L D, Hct 31.6 L, MCV 90.7, MCH 29.7, MCHC 32.8, RDW 14.8, Plt Count 174 D, MPV 8.8, Neut % (Auto) 66.1, Lymph % (Auto) 26.5, [place] % (Auto) 6.3, Eos % (Auto) 0.9, Baso % (Auto) 0.2, Neut # (Auto) 4.4, Lymph # (Auto) 1.8, [place] # (Auto) 0.4, Eos # (Auto) 0.1, Baso # (Auto) 0.0 10/21/19 05:42: Sodium 141, Potassium 3.5, Chloride 108 H, Carbon Dioxide 23, Anion Gap 13.5, BUN 23 H, Creatinine 1.29 H D, Estimated Creat Clear 66, Estimated GFR 40 L, Est GFR ( Amer) 49 L D, Glucose 156 H D, Calcium 7.4 L D, Magnesium 1.7, Total Bilirubin 0.4, AST 18, ALT 22 D, Alkaline Phosphatase 58, Total Protein 5.3 L, Albumin 2.4 L D, Globulin 2.9, Albumin/Globulin Ratio 0.8 L 10/21/19 05:42: Hemoglobin A1c 8.6 H I & O for Last 24 hours: Intake & Output 10/18/19 10/19/19 10/20/19 10/21/19 11:59 11:59 11:59 11:59 Intake Total 4888 / 4888 Output Total 200 / 200 Balance 4688 / 4688 Weight 200 lb 246 lb Microbiology Reports for the Last 24 Hours: Microbiology 10/20/19 11:00 Urine,Catheterized Urine Culture - Preliminary Gram Negative Rods - *Routine HEENT Exam Head: Present: normocephalic Eye: Present: EOMI, PERRL ENT: Present: mucous membranes moist - *Routine Neck Exam Present: supple. Absent: JVD, carotid bruit - *Routine Respiratory Exam Present: decreased breath sounds, rhonchi, wheezes. Absent: accessory muscle use, rales - *Routine Cardiovascular Exam Present: RRR. Absent: murmur, gallop, rubs - *Routine Abdominal Exam Present: soft. Absent: tenderness, distended, guarding - *Routine Extremities Exam Present: edema. 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 (3) SVT (supraventricular tachycardia) Current visit: Yes Status: Acute Category: Medical Code(s): I47.1 - Supraventricular tachycardia (4) Sepsis Current visit: Yes Status: Acute Category: Medical Code(s): A41.9 - Sepsis, unspecified organism (5) UTI (urinary tract infection) Current visit: Yes Status: Acute Qualifiers: Urinary tract infection type: acute pyelonephritis Qualified Code(s): N10 - Acute pyelonephritis Category: Medical Code(s): N39.0 - Urinary tract infection, site not specified (6) Acute kidney injury Current visit: Yes Status: Acute Category: Medical Code(s): N17.9 - Acute kidney failure, unspecified (7) Angina at rest Current visit: Yes Status: Acute Category: Medical Code(s): I20.8 - Other forms of angina pectoris - Assessment and plan all Dx Assessment and Plan for all problems:: 1. Tachyarrhythmia with A. fib and RVR. Currently in NSR with first degree AV block on coreg 6.25 mg BID and IV diltiazem, will stop both and switch to metoprolol tartrate 50 mg BID for rate control and less BP effect due to hypotension on admission. CHADS-VASC score is 5 (age, DM, HTN, female) with stroke risk of 6.7% per year. Recommend anticoagulation therapy but would hold off until after cardiac cath. Continue telemetry this admission. Obtain echocardiogram to evaluate left ventricular size and function along with left atrial size. 2. 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 High pre-test likelihood for CAD. Recommend cardiac cath when able to lie flat (likely Thursday) this admission. Continue beta elizabeth therapy and add nitrate therapy until cardiac cath. Add ASA 81 mg daily. Continue statin therapy. 3. History of hyperthyroidism and partial thyroidectomy, on replacement therapy with abnormal Thyroid panel likely due to acute illness. 4. Hypotension, improved with IVF. 5. UTI, on antibiotics 6. Dehydration with acute renal insufficiency, improved with IV fluids
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
--- NOTE | 2019-10-21 15:36 | Cardiology Report ---
APPROVED REPORT EXAM: Comprehensive 2D, Doppler, and color-flow Echocardiogram Wraparound Facilitator: Ernestina Ramirez RVT Ht: 5 ft 6 in Wt: 246lbs BSA: 2.18 BP: 143/66 mmHg Indications: cp, dm, hld, mac, pvd, sepsis, uti 2D Dimensions LVOT 2.36 cm (M/F) 1.5-2.5 M-Mode Dimensions RVDd 1.10 cm (0.9-2.6)LVDd 4.63 cm (3.5-5.7) LVDs 3.30 cm (3.5-5.7)IVSd 0.42 cm (0.6-1.1) PWd 0.91 cm (0.6-1.1)EF (Teich) 55.40% FS 28.70% EDV (Teich) 98.80 mL ESV (Teich) 44.10 mL LV Diastology E/A Ratio 0.52 Aortic Valve LVOT Max 118.00 (70-110 cm/s)LVOT VTI 26.81 cm Mitral Valve MV A Velocity 86.00 (40-130 cm/s) Left Ventricle Technically very difficult study because of the patient fact in poor acoustic windows, endocardial surfaces and valvular structures are poorly visualized. Mildly enlarged left atrium, normal left ventricular size, mild concentric left ventricular hypertrophy, probably preserved left ventricular systolic function, visually estimated ejection fraction 55%, with no obvious regional wall motion abnormality, endocardial surfaces are poorly visualized, if clinically indicated repeat study with Definity contrast is recommended. Right Ventricle Right atrium and right ventricular normal size and contractility. Aortic Valve Aortic valve is thickened and calcified, leaflets are poorly visualized. Aortic outflow velocities within normal range, excluding the presence of significant aortic stenosis. There is no aortic insufficiency. Mitral Valve Mitral valve leaflets are minimally thickened, there is no mitral stenosis, there is mild mitral regurgitation. Tricuspid Valve Tricuspid valve is grossly normal, there is mild tricuspid regurgitation. Pulmonic Valve Pulmonic valve is poorly visualized. Great Vessels Aortic root is normal size. Pericardium No significant pericardial effusion noted. Conclusion 1. Technically very difficult study because of the patient fact in poor acoustic windows. Endocardial surfaces and valvular structures are poorly visualized. A repeat study with Definity contrast is recommended if clinically indicated 2. Mildly enlarged left atrium, normal left ventricular size, mild concentric left ventricular hypertrophy, visually estimated ejection fraction 55% in the obtained views. 3. Thickened and calcified aortic valve, however Doppler is not indicated above significant aortic stenosis, there is no aortic insufficiency. 4. Mild mitral and tricuspid regurgitation. 5. No significant pericardial effusion noted. Electronically signed by : Harpreet Vargas, 10/21/2019 15:36:16
--- NOTE | 2019-10-21 15:51 | Electrocardiograph Report ---
APPROVED REPORT Exam: Resting ECG HR:70 bpm ECG Measurements Heart Rate 70 AXES AL 218 P 79 QRSd 76 QRS 29 QT 416 T62 QTc 449 <Conclusion> Sinus rhythm with 1st degree AV block with premature atrial complexes Otherwise normal ECG Electronically signed by : Colt Dong, 10/21/2019 15:50:49
[2019-10-22 06:31] LABS: Basophils % 0.1 % (0.1-2.0); Eosinophils # 0.1 K/mm3 (0.0-0.4); Eosinophils % 1.7 % (0.1-12.0); Hematocrit 30.9 % (37.0-47.0); Hemoglobin 10.3 g/dL (12.2-16.2); Lymphocytes # 1.5 K/mm3 (0.7-4.5); Lymphocytes % 28.9 % (10-50); Mean Corpuscular HGB Conc 33.5 g/dL (31.8-35.4); Mean Corpuscular Volume 89.8 fl (81-99); Mean Platelet Volume 7.7 fl (7.4-10.4); Monocytes # 0.3 K/mm3 (0.1-1.0); Monocytes % 5.7 % (1.7-9.3); Neutrophils # 3.3 K/mm3 (1.8-7.8); Neutrophils % 63.5 % (37.0-80.0); Platelet Count 172 K/mm3 (142-424); Red Blood Count 3.44 M/mm3 (4.20-5.40); Red Cell Distribution Width 14.8 % (11.5-17.5); White Blood Count 5.3 K/mm3 (4.8-10.8)
[2019-10-22 06:51] LABS: Albumin Level 2.7 gm/dL (3.4-5.0); Anion Gap 13.8 mEq/L (5-15); Bilirubin,Total 0.4 mg/dL (0.2-1.0); Calcium 7.6 mg/dL (8.5-10.1); Globulin 2.6 gm/dl (1.3-3.2); Total Protein,Serum 5.3 gm/dL (6.4-8.2)
--- NOTE | 2019-10-22 08:35 | Progress Note ---
Internal Medicine - PN: Subj *Date: 10/22/19 *Time: 08:32 Interval history: Patient feels better overnight. Able to get up in a chair. Eating breakfast today. Complains of some ongoing mucus production. Exam Vital signs and Labs for Last 24 Hours: Temp Pulse Resp BP Pulse Ox 98.8 F 66 20 159/62 H 96 10/22/19 08:00 10/22/19 05:52 10/22/19 05:52 10/22/19 06:00 10/22/19 05:52 Laboratory Results - last 24 hr 10/21/19 11:27: POC Glucose 210 H 10/21/19 16:46: POC Glucose 228 H 10/21/19 19:56: POC Glucose 233 H 10/22/19 05:50: WBC 5.3, RBC 3.44 L, Hgb 10.3 L, Hct 30.9 L, MCV 89.8, MCH 30.1, MCHC 33.5, RDW 14.8, Plt Count 172, MPV 7.7, Neut % (Auto) 63.5, Lymph % (Auto) 28.9, [place] % (Auto) 5.7, Eos % (Auto) 1.7, Baso % (Auto) 0.1, Neut # (Auto) 3.3, Lymph # (Auto) 1.5, [place] # (Auto) 0.3, Eos # (Auto) 0.1, Baso # (Auto) 0.0 10/22/19 05:50: Sodium 141, Potassium 3.8, Chloride 107, Carbon Dioxide 24, Anion Gap 13.8, BUN 23 H, Creatinine 1.22 H, Estimated Creat Clear 72, Estimated GFR 43 L, Est GFR ( Amer) 52 L, Glucose 147 H, Calcium 7.6 L, Total Bilirubin 0.4, AST 21, ALT 24, Alkaline Phosphatase 68, Total Protein 5.3 L, Albumin 2.7 L D, Globulin 2.6, Albumin/Globulin Ratio 1.0 L 10/22/19 05:53: POC Glucose 157 H I & O for Last 24 hours: Intake & Output 10/19/19 10/20/19 10/21/19 10/22/19 11:59 11:59 11:59 11:59 Intake Total 5128 / 5128 940 / 940 Output Total 200 / 200 100 / 100 Balance 4928 / 4928 840 / 840 Weight 200 lb 246 lb 14.684 oz 253 lb 9 oz Microbiology Reports for the Last 24 Hours: Microbiology 10/21/19 14:10 Sputum - Expectorated Sputum Gram Stain - Final 10/21/19 14:10 Sputum - Expectorated Sputum Sputum Culture - Preliminary 10/20/19 11:00 Urine,Catheterized Urine Culture - Final Escherichia coli Narrative: Patient is pleasant, alert. Oriented x3. Oropharynx clear. No JVD but her morbid obesity limits exam. Lungs have good air movement. Heart rate regular. Previously noted 2/6 flow murmur. Abdomen obese but soft. Legs wrapped in gauze. No distal perfusion deficits. Able to move all extremities well but globally still weak. Assessment and Plan (1) History of hyperthyroidism Current visit: Yes Status: Chronic Category: Medical Code(s): Z86.39 - Personal history of other endocrine, nutritional and metabolic disease (2) Insulin dependent diabetes mellitus Current visit: Yes Status: Chronic Category: Medical Code(s): E11.9 - Type 2 diabetes mellitus without complications; Z79.4 - residential (current) use of insulin (3) SVT (supraventricular tachycardia) Current visit: Yes Status: Acute Category: Medical Code(s): I47.1 - Supraventricular tachycardia (4) Sepsis Current visit: Yes Status: Acute Category: Medical Code(s): A41.9 - Sepsis, unspecified organism (5) UTI (urinary tract infection) Current visit: Yes Status: Acute Qualifiers: Urinary tract infection type: acute pyelonephritis Qualified Code(s): N10 - Acute pyelonephritis Category: Medical Code(s): N39.0 - Urinary tract infection, site not specified UTI secondary to E. coli. Sensitive to ceftriaxone. We will continue this. Await sputum cultures. (6) Acute kidney injury Current visit: Yes Status: Acute Category: Medical Code(s): N17.9 - Acute kidney failure, unspecified (7) Angina at rest Current visit: Yes Status: Acute Category: Medical Code(s): I20.8 - Other forms of angina pectoris - Assessment and plan all Dx Assessment and Plan for all problems:: See yesterday's notes in regards to thyroid labs. I will make no changes in thyroid medication. Overall patient is improving. Acute kidney injury is resolving. Labs tomorrow morning and then if stable plan for left heart cath for definitive look at her coronary arteries and her calcified/sclerotic aortic valve on Thursday.
--- NOTE | 2019-10-22 20:57 | Electrocardiograph Report ---
APPROVED REPORT Exam: Resting ECG HR:127 bpm ECG Measurements Heart Rate 127 AXES QRSd 74 QRS 32 QT 320 T60 QTc 465 <Conclusion> Atrial fibrillation with rapid ventricular response Low voltage QRS Abnormal ECG Electronically signed by : Johnathan Cohen, 10/22/2019 20:57:16
--- NOTE | 2019-10-22 20:57 | Electrocardiograph Report ---
APPROVED REPORT Exam: Resting ECG HR:78 bpm ECG Measurements Heart Rate 78 AXES [place] 188 P 30 QRSd 76 QRS 33 QT 354 T72 QTc 403 <Conclusion> Sinus rhythm with premature atrial complexes Otherwise normal ECG Electronically signed by : Johnathan Cohen, 10/22/2019 20:57:20
--- NOTE | 2019-10-22 21:00 | Electrocardiograph Report ---
APPROVED REPORT Exam: Resting ECG HR:76 bpm ECG Measurements Heart Rate 76 AXES VT 196 P 60 QRSd 80 QRS 46 QT 390 T70 QTc 438 <Conclusion> Sinus rhythm with premature supraventricular complexes Otherwise normal ECG Electronically signed by : Johnathan Cohen, 10/22/2019 20:59:24
--- NOTE | 2019-10-22 21:00 | Electrocardiograph Report ---
APPROVED REPORT Exam: Resting ECG HR:156 bpm ECG Measurements Heart Rate 156 AXES QRSd 76 QRS 60 QT 304 T83 QTc 489 <Conclusion> Supraventricular tachycardia with fusion complexes Nonspecific ST abnormality Abnormal ECG Electronically signed by : Johnathan Cohen, 10/22/2019 20:59:28
[2019-10-23 05:46] LABS: Basophils % 0.2 % (0.1-2.0); Eosinophils # 0.1 K/mm3 (0.0-0.4); Eosinophils % 1.7 % (0.1-12.0); Hemoglobin 10.1 g/dL (12.2-16.2); Lymphocytes # 1.3 K/mm3 (0.7-4.5); Mean Corpuscular HGB Conc 32.7 g/dL (31.8-35.4); Mean Corpuscular Volume 91.1 fl (81-99); Mean Platelet Volume 8.2 fl (7.4-10.4); Monocytes # 0.3 K/mm3 (0.1-1.0); Monocytes % 6.2 % (1.7-9.3); Neutrophils # 3.1 K/mm3 (1.8-7.8); Neutrophils % 64.9 % (37.0-80.0); Platelet Count 173 K/mm3 (142-424); Red Blood Count 3.41 M/mm3 (4.20-5.40); Red Cell Distribution Width 14.7 % (11.5-17.5); White Blood Count 4.8 K/mm3 (4.8-10.8)
[2019-10-23 05:55] LABS: Anion Gap 13.8 mEq/L (5-15); Calcium 7.7 mg/dL (8.5-10.1)
--- NOTE | 2019-10-23 08:48 | Progress Note ---
Internal Medicine - PN: Subj *Date: 10/23/19 *Time: 08:47 Interval history: Patient did well overnight. Had one 3-minute episode of rapid A. fib yesterday that spontaneously resolved. Since that time has been in sinus rhythm on the monitor. Feels like her breathing is much better with the addition of Mucomyst nebulizer treatments. Exam Vital signs and Labs for Last 24 Hours: Temp Pulse Resp BP Pulse Ox 98.4 F 64 24 153/69 H 98 10/23/19 08:00 10/23/19 06:00 10/23/19 06:00 10/23/19 06:00 10/23/19 06:00 Laboratory Results - last 24 hr 10/22/19 12:12: POC Glucose 171 H 10/22/19 16:52: POC Glucose 255 H 10/23/19 05:29: POC Glucose 186 H 10/23/19 05:30: WBC 4.8, RBC 3.41 L, Hgb 10.1 L, Hct 31.0 L, MCV 91.1, MCH 29.8, MCHC 32.7, RDW 14.7, Plt Count 173, MPV 8.2, Neut % (Auto) 64.9, Lymph % (Auto) 27.0, [place] % (Auto) 6.2, Eos % (Auto) 1.7, Baso % (Auto) 0.2, Neut # (Auto) 3.1, Lymph # (Auto) 1.3, [place] # (Auto) 0.3, Eos # (Auto) 0.1, Baso # (Auto) 0.0 10/23/19 05:30: Sodium 140, Potassium 3.8, Chloride 107, Carbon Dioxide 23, Anion Gap 13.8, BUN 23 H, Creatinine 1.07 H, Estimated Creat Clear 83, Estimated GFR 50 L, Est GFR ( Amer) 60, Glucose 172 H, Calcium 7.7 L I & O for Last 24 hours: Intake & Output 10/20/19 10/21/19 10/22/19 10/23/19 11:59 11:59 11:59 11:59 Intake Total 5128 / 5128 940 / 940 840 / 840 Output Total 200 / 200 100 / 100 500 / 500 Balance 4928 / 4928 840 / 840 340 / 340 Weight 200 lb 246 lb 14.684 oz 253 lb 9 oz 254 lb 1.994 oz Microbiology Reports for the Last 24 Hours: Microbiology 10/21/19 14:10 Sputum - Expectorated Sputum Gram Stain - Final 10/21/19 14:10 Sputum - Expectorated Sputum Sputum Culture - Preliminary 10/20/19 10:20 Blood Blood Culture - Preliminary NO GROWTH AFTER 48 HOURS 10/20/19 10:20 Blood Blood Culture - Preliminary NO GROWTH AFTER 48 HOURS 10/20/19 11:00 Urine,Catheterized Urine Culture - Final Escherichia coli Narrative: In bed, alert, oriented x3. Lungs have good air movement. Some minimal rhonchi bilaterally. Heart rate regular. Previously noted murmur. Edema is unchanged. Wound on left leg wrapped. Neurologically intact. No JVD but her obesity limits accuracy of her exam. Abdomen soft nontender Assessment and Plan (1) History of hyperthyroidism Current visit: Yes Status: Chronic Category: Medical Code(s): Z86.39 - Personal history of other endocrine, nutritional and metabolic disease (2) Insulin dependent diabetes mellitus Current visit: Yes Status: Chronic Category: Medical Code(s): E11.9 - Type 2 diabetes mellitus without complications; Z79.4 - emt intermediate (current) use of insulin (3) SVT (supraventricular tachycardia) Current visit: Yes Status: Acute Category: Medical Code(s): I47.1 - Supraventricular tachycardia (4) Sepsis Current visit: Yes Status: Acute Category: Medical Code(s): A41.9 - Sepsis, unspecified organism (5) UTI (urinary tract infection) Current visit: Yes Status: Acute Qualifiers: Urinary tract infection type: acute pyelonephritis Qualified Code(s): N10 - Acute pyelonephritis Category: Medical Code(s): N39.0 - Urinary tract infection, site not specified (6) Acute kidney injury Current visit: Yes Status: Acute Category: Medical Code(s): N17.9 - Acute kidney failure, unspecified (7) Angina at rest Current visit: Yes Status: Acute Category: Medical Code(s): I20.8 - Other forms of angina pectoris - Assessment and plan all Dx Assessment and Plan for all problems:: Nicely improved. Await sputum culture. UTI/sepsis adequately treated at this point. Should be good to go for left heart cath tomorrow to assess vascular status and aortic valve issues.
--- NOTE | 2019-10-24 07:25 | Progress Note ---
Internal Medicine - PN: Subj *Date: 10/24/19 *Time: 07:24 Interval history: Patient slept well overnight. Has no complaints. Exam Vital signs and Labs for Last 24 Hours: Temp Pulse Resp BP Pulse Ox 98.3 F 68 20 157/68 H 97 10/24/19 04:00 10/24/19 06:12 10/24/19 04:00 10/24/19 04:00 10/24/19 06:12 Laboratory Results - last 24 hr 10/22/19 20:54: POC Glucose 227 H 10/23/19 11:40: POC Glucose 260 H 10/23/19 17:04: POC Glucose 230 H 10/23/19 20:19: POC Glucose 246 H 10/24/19 05:27: POC Glucose 209 H I & O for Last 24 hours: Intake & Output 10/21/19 10/22/19 10/23/19 10/24/19 11:59 11:59 11:59 11:59 Intake Total 5128 / 5128 940 / 940 840 / 840 660 / 660 Output Total 200 / 200 100 / 100 500 / 500 Balance 4928 / 4928 840 / 840 340 / 340 660 / 660 Weight 246 lb 14.684 oz 253 lb 9 oz 254 lb 1.994 oz 256 lb 6 oz Microbiology Reports for the Last 24 Hours: Microbiology 10/21/19 14:10 Sputum - Expectorated Sputum Gram Stain - Final 10/21/19 14:10 Sputum - Expectorated Sputum Sputum Culture - Preliminary Narrative: Heart rate well controlled overnight. Patient is alert. Pleasant. Abdomen soft. Nontender. Lungs have good air movement, some rhonchi. Extremities are unchanged. Able to move extremities well, other than global weakness she has no neurologic deficits. No JVD. Oropharynx clear. Assessment and Plan (1) History of hyperthyroidism Current visit: Yes Status: Chronic Category: Medical Code(s): Z86.39 - Personal history of other endocrine, nutritional and metabolic disease (2) Insulin dependent diabetes mellitus Current visit: Yes Status: Chronic Category: Medical Code(s): E11.9 - Type 2 diabetes mellitus without complications; Z79.4 - long-term (current) use of insulin (3) SVT (supraventricular tachycardia) Current visit: Yes Status: Acute Category: Medical Code(s): I47.1 - Supraventricular tachycardia (4) Sepsis Current visit: Yes Status: Acute Category: Medical Code(s): A41.9 - Sepsis, unspecified organism (5) UTI (urinary tract infection) Current visit: Yes Status: Acute Qualifiers: Urinary tract infection type: acute pyelonephritis Qualified Code(s): N10 - Acute pyelonephritis Category: Medical Code(s): N39.0 - Urinary tract infection, site not specified (6) Acute kidney injury Current visit: Yes Status: Acute Category: Medical Code(s): N17.9 - Acute kidney failure, unspecified (7) Angina at rest Current visit: Yes Status: Acute Category: Medical Code(s): I20.8 - Other forms of angina pectoris - Assessment and plan all Dx Assessment and Plan for all problems:: Overall conditions nicely improved. No changes in plan. Perhaps discharge this afternoon after heart cath if no major surprises are found on this test.
--- NOTE | 2019-10-24 08:13 | Progress Note ---
Subjective Date: 10/24/19 Time: 08:10 Interval history: 73 yo WF in bed in NAD. Some brief A. fib with chest discomfort over the weekend but overall she feels better. Questions answered regarding LHC. Pt agrees to proceed. Exam Vital signs and Labs for Last 24 Hours: Temp Pulse Resp BP Pulse Ox 98.3 F 68 20 157/68 H 97 10/24/19 04:00 10/24/19 06:12 10/24/19 04:00 10/24/19 04:00 10/24/19 06:12 Laboratory Results - last 24 hr 10/22/19 20:54: POC Glucose 227 H 10/23/19 11:40: POC Glucose 260 H 10/23/19 17:04: POC Glucose 230 H 10/23/19 20:19: POC Glucose 246 H 10/24/19 05:27: POC Glucose 209 H I & O for Last 24 hours: Intake & Output 10/21/19 10/22/19 10/23/19 10/24/19 11:59 11:59 11:59 11:59 Intake Total 5128 / 5128 940 / 940 840 / 840 660 / 660 Output Total 200 / 200 100 / 100 500 / 500 Balance 4928 / 4928 840 / 840 340 / 340 660 / 660 Weight 246 lb 14.684 oz 253 lb 9 oz 254 lb 1.994 oz 256 lb 6 oz Microbiology Reports for the Last 24 Hours: Microbiology 10/21/19 14:10 Sputum - Expectorated Sputum Gram Stain - Final 10/21/19 14:10 Sputum - Expectorated Sputum Sputum Culture - Preliminary - *Routine Respiratory Exam Present: decreased breath sounds, rhonchi, wheezes. Absent: accessory muscle use, rales - *Routine Cardiovascular Exam Present: RRR. Absent: murmur, gallop, rubs - *Routine Extremities Exam Absent: edema, calf tenderness - *Routine Neurological Exam Present: alert, oriented X3, moving all extremities Progress Note: A&P (1) History of hyperthyroidism Status: Chronic Current Visit: Yes (2) Insulin dependent diabetes mellitus Status: Chronic Current Visit: Yes (3) SVT (supraventricular tachycardia) Status: Acute Current Visit: Yes (4) Sepsis Status: Acute Current Visit: Yes (5) UTI (urinary tract infection) Status: Acute Current Visit: Yes (6) Acute kidney injury Status: Acute Current Visit: Yes (7) Angina at rest Status: Acute Current Visit: Yes Assessment and Plan for All Diagnoses:: 1. C today for evaluation of angina during SVT/rapid a. fib, further recommendations to follow. Continue metoprolol, ASA and isosorbide. 2. Continue metoprolol for SVT/PAF and HTN. Will need to start anticoagulation post cath due to elevated CHADS-VASC score. Recommend Xarelto 15 mg daily based on GFR this admission.
--- NOTE | 2019-10-25 07:54 | Progress Note ---
Internal Medicine - PN: Subj *Date: 10/25/19 *Time: 07:53 Interval history: Patient felt well overnight but unfortunately has had several episodes of a flutter and now is in SVT and a rate of 144. She does not feel very uncomfortable but is cognizant of a rapid heart rate. Exam Vital signs and Labs for Last 24 Hours: Temp Pulse Resp BP Pulse Ox 98.5 F 144 H 18 111/65 96 10/25/19 04:00 10/25/19 06:05 10/25/19 04:00 10/25/19 04:00 10/25/19 06:05 Laboratory Results - last 24 hr 10/24/19 11:12: POC Glucose 119 H 10/24/19 16:42: POC Glucose 200 H 10/24/19 21:47: POC Glucose 309 H* 10/25/19 04:14: POC Glucose 247 H I & O for Last 24 hours: Intake & Output 10/22/19 10/23/19 10/24/19 10/25/19 11:59 11:59 11:59 11:59 Intake Total 940 / 940 840 / 840 660 / 660 50 / 50 Output Total 100 / 100 500 / 500 0 / 0 600 / 600 Balance 840 / 840 340 / 340 660 / 660 -550 / -550 Weight 253 lb 9 oz 254 lb 1.994 oz 256 lb 6 oz 262 lb 9 oz Microbiology Reports for the Last 24 Hours: Microbiology 10/21/19 14:10 Sputum - Expectorated Sputum Gram Stain - Final 10/21/19 14:10 Sputum - Expectorated Sputum Sputum Culture - Final Normal Respiratory Aida Narrative: Oropharynx clear, no JVD. Heart rate rapid in the 140s. Lungs have good air movement. Edema is unchanged. Abdomen soft and nontender. Neurologically intact. Assessment and Plan (1) History of hyperthyroidism Current visit: Yes Status: Chronic Category: Medical Code(s): Z86.39 - Personal history of other endocrine, nutritional and metabolic disease (2) Insulin dependent diabetes mellitus Current visit: Yes Status: Chronic Category: Medical Code(s): E11.9 - Type 2 diabetes mellitus without complications; Z79.4 - alf (current) use of insulin (3) SVT (supraventricular tachycardia) Current visit: Yes Status: Acute Category: Medical Code(s): I47.1 - Supraventricular tachycardia (4) Sepsis Current visit: Yes Status: Acute Category: Medical Code(s): A41.9 - Sepsis, unspecified organism (5) UTI (urinary tract infection) Current visit: Yes Status: Acute Qualifiers: Urinary tract infection type: acute pyelonephritis Qualified Code(s): N10 - Acute pyelonephritis Category: Medical Code(s): N39.0 - Urinary tract infection, site not specified (6) Acute kidney injury Current visit: Yes Status: Acute Category: Medical Code(s): N17.9 - Acute kidney failure, unspecified (7) Angina at rest Current visit: Yes Status: Acute Category: Medical Code(s): I20.8 - Other forms of angina pectoris - Assessment and plan all Dx Assessment and Plan for all problems:: Results of cardiac cath noted. Agree with cardiology plan for diuretics however now rhythm needs to be addressed. I started low-dose immediate release diltiazem to see if this will help along with her beta-elizabeth. Cardiology consultation to follow today to decide about whether or not medication versus ablation issues would be reasonable.
--- NOTE | 2019-10-25 08:33 | Electrocardiograph Report ---
APPROVED REPORT Exam: Resting ECG HR:142 bpm ECG Measurements Heart Rate 142 AXES QRSd 76 QRS 17 QT 312 T76 QTc 479 <Conclusion> Supraventricular tachycardia Nonspecific ST and T wave abnormality Abnormal ECG Electronically signed by : Colt Dong, 10/25/2019 08:33:09
--- NOTE | 2019-10-25 10:18 | Progress Note ---
Subjective Date: 10/25/19 Time: 10:14 Principal diagnosis: SOA, SVT Interval history: 74-year-old white female in bed in no acute distress. Still with congested cough and some shortness of breath although improved. Patient noted to have recurrence of SVT (likely atrial flutter) overnight that was unresponsive to additional IV beta-elizabeth. Just prior to my visit today the patient did convert to sinus rhythm with a rate in the 50's. Exam Vital signs and Labs for Last 24 Hours: Temp Pulse Resp BP Pulse Ox 98.4 F 87 17 119/71 95 10/25/19 08:00 10/25/19 08:00 10/25/19 08:00 10/25/19 08:00 10/25/19 08:00 Laboratory Results - last 24 hr 10/24/19 11:12: POC Glucose 119 H 10/24/19 16:42: POC Glucose 200 H 10/24/19 21:47: POC Glucose 309 H* 10/25/19 04:14: POC Glucose 247 H 10/25/19 05:56: POC Glucose 254 H I & O for Last 24 hours: Intake & Output 10/22/19 10/23/19 10/24/19 10/25/19 11:59 11:59 11:59 11:59 Intake Total 940 / 940 840 / 840 660 / 660 590 / 590 Output Total 100 / 100 500 / 500 0 / 0 600 / 600 Balance 840 / 840 340 / 340 660 / 660 -10 / -10 Weight 253 lb 9 oz 254 lb 1.994 oz 256 lb 6 oz 262 lb 9 oz Microbiology Reports for the Last 24 Hours: Microbiology 10/21/19 14:10 Sputum - Expectorated Sputum Gram Stain - Final 10/21/19 14:10 Sputum - Expectorated Sputum Sputum Culture - Final Normal Respiratory Aida - *Routine Respiratory Exam Present: decreased breath sounds, rhonchi. Absent: accessory muscle use, rales, wheezes - *Routine Cardiovascular Exam Present: RRR, murmur. Absent: gallop, rubs - *Routine Neurological Exam Present: alert, oriented X3, moving all extremities Progress Note: A&P (1) Atrial flutter with rapid ventricular response Status: Acute Current Visit: Yes (2) History of hyperthyroidism Status: Chronic Current Visit: Yes (3) Insulin dependent diabetes mellitus Status: Chronic Current Visit: Yes (4) SVT (supraventricular tachycardia) Status: Acute Current Visit: Yes (5) Sepsis Status: Acute Current Visit: Yes (6) UTI (urinary tract infection) Status: Acute Current Visit: Yes (7) Acute kidney injury Status: Acute Current Visit: Yes (8) Angina at rest Status: Acute Current Visit: Yes Assessment and Plan for All Diagnoses:: 1. In light of recurrent SVT/atrial flutter on metoprolol 50 mg twice daily with additional IV metoprolol overnight, will recommend switching to sotalol 80 mg twice daily to try and maintain sinus rhythm. Recommend continuing to monitor another 24 to 48 hours while starting sotalol therapy. Baseline QTC interval is 440 to 460 ms on EKGs this admission. At this time patient does not require pacemaker but there is concern for tachybradycardia syndrome. Consideration for outpatient referral to EP marketing analytics specialist discussed. Repeat EKG every morning x3 while starting sotalol. 2. Patient is up almost 7 L of fluid during this hospital stay. With her elevated end-diastolic pressure on cardiac cath yesterday will increase diuretic therapy this a.m. and repeat BMP in the a.m. 3. Coronary artery disease best treated with medical therapy per cardiac cath this admission
[2019-10-26 08:01] LABS: Anion Gap 13.8 mEq/L (5-15); Calcium 7.9 mg/dL (8.5-10.1)
--- NOTE | 2019-10-26 09:16 | Discharge Summary ---
General - General Admission date:: 10/20/19 Discharge date: 10/26/19 HPI HPI: Ms. Thomas is a 73-year-old female who presented to clinic this morning with her daughter due to fatigue, worsening cough over the past week, and diarrhea for the past few days. On initial assessment we were unable to obtain a blood pressure and so she was transferred to the ER emergently for further assessment and work-up. In the ER her initial blood pressure was 88/16 and she was in SVT with a heart rate of approximately 160. She was given a fluid bolus and 20 mg of IV Cardizem. She responded briskly with conversion to normal sinus rhythm and improvement in her blood pressure to approximately 120/70. Further work-up showed lab abnormalities concerning for elevated lactate, kidney dysfunction, urine concerning for UTI, and chest x-ray concerning for CHF exacerbation with increased pulmonary vasculature and cephalization left worse than right and bilateral lower lung field opacification. Admitted to medicine for further management of her acute conditions. Hospital Course Hospital Course: Patient was admitted, found to be in criteria for sepsis. Broad-spectrum IV antibiotics were given patient eventually grew out E. coli from urine but blood cultures were negative. Sepsis improved with appropriate fluid antibiotic administration. Given patient's elevated troponins and a flutter episode she was subjected to left heart cath when she was stable. Patient was noted to have diastolic dysfunction, diuretics were recommended and medical therapy for her coronary disease. No stents were placed. She did have a couple episodes of atrial flutter over the next couple of days. Treated with sotalol which resolved her situation and did not cause any QT prolongation. Tolerated her medications well. Physical therapy evaluated her and felt that she was safe to go home, will discharge her today on new medications as noted. Close follow-up with cardiology in my office as scheduled. Objective Vital signs: Temp Pulse Resp BP Pulse Ox 98.2 F 61 18 128/56 L 96 10/26/19 04:00 10/26/19 06:05 10/26/19 04:00 10/26/19 04:00 10/26/19 06:05 Narrative: Patient is pleasant, up in the chair, no complaints, feels good. Denies chest pain or palpitations. Heart rate regular. Abdomen soft, distal extremities wrapped with dry gauze for her previous noted wounds. Trace ankle edema. Lungs have good air movement. Neurologically intact. Results Labs on day of discharge: Labs from last 24 hours 10/26/19 10/26/19 10/25/19 06:35 05:58 21:33 Sodium 137 Potassium 4.8 Chloride 106 Carbon Dioxide 22 Anion Gap 13.8 BUN 28 H Creatinine 1.15 H Estimated Creat Clear 39 Estimated GFR 46 L Est GFR ( Amer) 56 L Glucose 148 H POC Glucose 162 H 242 H Calcium 7.9 L 10/25/19 10/25/19 16:40 11:15 Sodium Potassium Chloride Carbon Dioxide Anion Gap BUN Creatinine Estimated Creat Clear Estimated GFR Est GFR ( Amer) Glucose POC Glucose 261 H 258 H Calcium DS: Diagnosis - Discharge Diagnosis (1) Atrial flutter with rapid ventricular response Status: Resolved (2) History of hyperthyroidism Status: Chronic (3) Insulin dependent diabetes mellitus Status: Chronic (4) SVT (supraventricular tachycardia) Status: Resolved (5) Sepsis Status: Resolved (6) UTI (urinary tract infection) Status: Resolved (7) Acute kidney injury Status: Resolved (8) Angina at rest Status: Resolved Discharge Plan - Patient Discharge Instructions ACTIVITY: Continue current activity DIET: continue same diet Patient Instructions: Paroxysmal Supraventricular Tachycardia, DI for Urinary Tract Infection (UTI), DI for Sepsis -- Adult - Follow up Plan Follow up with: Orlando Plummer MD [Staff Physician] - 10/31/19 1:00 pm Johnathan Cohen MD [Staff Physician] - 11/02/19 Disposition: Home, Self-Shelter Medications: Home Medications Medication Instructions Recorded Confirmed Type Atorvastatin Calcium [Atorvastatin 20 mg PO HS 10/20/19 10/20/19 History 20mg Tab] Insulin Glargine,Hum.rec.anlog 50 unit SQ DAILY 10/20/19 10/20/19 History [Toujeo Max Solostar] Insulin Regular, Human [Novolin R 0 unit SQ NEEDED PRN 10/20/19 10/20/19 History Flexpen] Levothyroxine Sodium 12.5 mcg PO DAILY 10/20/19 10/20/19 History [Levothyroxine 25mcg (0.025mg) Tab] carvediloL [Carvedilol 6.25mg Tab] 6.25 mg PO BID 10/20/19 10/20/19 History Cefdinir [Omnicef 300mg Capsule] 300 mg PO BID #14 cap 10/26/19 Rx Furosemide [Lasix 20mg tablet] 20 mg PO DAILY #30 tab 10/26/19 Rx Sotalol HCl [Betapace 80mg Tablet] 80 mg PO BID #60 tab 10/26/19 Rx Spironolactone [Aldactone 25mg 25 mg PO DAILY #30 tab 10/26/19 Rx Tab] Prescriptions/Medication Reconciliation: New Spironolactone [Aldactone 25mg Tab] 25 mg PO DAILY #30 tab Sotalol HCl [Betapace 80mg Tablet] 80 mg PO BID #60 tab Furosemide [Lasix 20mg tablet] 20 mg PO DAILY #30 tab Cefdinir [Omnicef 300mg Capsule] 300 mg PO BID #14 cap Continued Levothyroxine Sodium [Levothyroxine 25mcg (0.025mg) Tab] 12.5 mcg PO DAILY Insulin Regular, Human [Novolin R Flexpen] 0 unit SQ NEEDED PRN PRN Reason: Blood Sugar - High Insulin Glargine,Hum.rec.anlog [Spencer Ashley] 50 unit SQ DAILY Atorvastatin Calcium [Atorvastatin 20mg Tab] 20 mg PO HS Discontinued carvediloL [Carvedilol 6.25mg Tab] 6.25 mg PO BID - Problem Reconciliation Problems Reviewed?: Yes
--- NOTE | 2019-10-26 10:43 | Progress Note ---
Subjective Date: 10/26/19 Time: 10:38 Principal diagnosis: SOA, SVT Interval history: The patient is feeling much better today per her report. She states that she feels much better today than she has in a long time. She denies any chest pain, pressure, shortness of breath or edema. She denies any fever, chills, nausea, vomiting, diarrhea, PND or orthopnea. Patient is scheduled to be discharged home today and will follow-up in our clinic on Thursday. Exam Vital signs and Labs for Last 24 Hours: Temp Pulse Resp BP Pulse Ox 98.2 F 61 18 128/56 L 96 10/26/19 04:00 10/26/19 06:05 10/26/19 04:00 10/26/19 04:00 10/26/19 06:05 Laboratory Results - last 24 hr 10/25/19 11:15: POC Glucose 258 H 10/25/19 16:40: POC Glucose 261 H 10/25/19 21:33: POC Glucose 242 H 10/26/19 05:58: POC Glucose 162 H 10/26/19 06:35: Sodium 137, Potassium 4.8, Chloride 106, Carbon Dioxide 22, Anion Gap 13.8, BUN 28 H, Creatinine 1.15 H, Estimated Creat Clear 39, Estimated GFR 46 L, Est GFR ( Amer) 56 L, Glucose 148 H, Calcium 7.9 L I & O for Last 24 hours: Intake & Output 10/23/19 10/24/19 10/25/19 10/26/19 23:59 23:59 23:59 23:59 Intake Total 540 / 660 170 / 170 1620 / 1620 Output Total 200 / 200 0 / 600 960 / 960 Balance 340 / 460 170 / -430 660 / 660 Weight 254 lb 1.994 oz 256 lb 6 oz 262 lb 9 oz 255 lb 4 oz Microbiology Reports for the Last 24 Hours: Microbiology 10/20/19 10:20 Blood Blood Culture - Final NO GROWTH AFTER 5 DAYS 10/20/19 10:20 Blood Blood Culture - Final NO GROWTH AFTER 5 DAYS Narrative: Telemetry strip shows sinus rhythm with a rate of 63. - Constitutional no acute distress, morbidly obese - *Routine HEENT Exam Head: Present: normocephalic, atraumatic Eye: Present: EOMI, PERRL ENT: Present: mucous membranes moist - *Routine Neck Exam Present: supple, full ROM, normal carotid upstroke. Absent: JVD, carotid bruit, lymphadenopathy - *Routine Respiratory Exam Present: wheezes (Expiratory wheezing) - *Routine Cardiovascular Exam Present: RRR, Normal S1, Normal S2. Absent: murmur - *Routine Abdominal Exam Present: soft, normoactive bowel sounds. Absent: tenderness, distended - *Routine Extremities Exam Present: full ROM, pulses intact, normal capillary refill. Absent: cyanosis, clubbing, edema - *Routine Skin Exam Present: intact, warm. Absent: erythema, rash - *Routine Neurological Exam Present: alert, oriented X3, CN II-XII intact. Absent: sensory deficit, motor deficit - Detailed Eye Exam Eyelids: Left normal inspection Progress Note: A&P (1) Atrial flutter with rapid ventricular response Status: Resolved Current Visit: Yes (2) History of hyperthyroidism Status: Chronic Current Visit: Yes (3) Insulin dependent diabetes mellitus Status: Chronic Current Visit: Yes (4) SVT (supraventricular tachycardia) Status: Resolved Current Visit: Yes (5) Sepsis Status: Resolved Current Visit: Yes (6) UTI (urinary tract infection) Status: Resolved Current Visit: Yes (7) Acute kidney injury Status: Resolved Current Visit: Yes Assessment and Plan for All Diagnoses:: Plan: 1. The patient was found to be in SVT/atrial flutter. The patient has converted to sinus rhythm. She is currently on sotalol and will go home on this medication. Her QTC today is within normal limits. 2. The patient's heart rate is around 63. No significant bradycardia. Permanent pacemaker placement is not required at this time. 3. She denies any chest pain or pressure. No plans for invasive cardiac testing at this time. 4. Her blood pressure is well controlled. 5. Her LDL goal is less than 100. 6. We will consider an EP referral on an outpatient basis. 7. No further recommendations at this time from a cardiac standpoint. The patient is scheduled to follow-up Thursday morning in the cardiology clinic.
--- NOTE | 2019-10-26 13:47 | Progress Note ---
Internal Medicine - PN: Subj *Date: 10/26/19 *Time: 13:43 Exam Vital signs and Labs for Last 24 Hours: Temp Pulse Resp BP Pulse Ox 98.0 F 69 16 112/46 L 96 10/26/19 08:00 10/26/19 08:00 10/26/19 08:00 10/26/19 08:00 10/26/19 08:00 Laboratory Results - last 24 hr 10/25/19 16:40: POC Glucose 261 H 10/25/19 21:33: POC Glucose 242 H 10/26/19 05:58: POC Glucose 162 H 10/26/19 06:35: Sodium 137, Potassium 4.8, Chloride 106, Carbon Dioxide 22, Anion Gap 13.8, BUN 28 H, Creatinine 1.15 H, Estimated Creat Clear 39, Estimated GFR 46 L, Est GFR ( Amer) 56 L, Glucose 148 H, Calcium 7.9 L I & O for Last 24 hours: Intake & Output 10/23/19 10/24/19 10/25/19 10/26/19 23:59 23:59 23:59 23:59 Intake Total 540 / 660 170 / 170 1620 / 1620 Output Total 200 / 200 0 / 600 960 / 960 Balance 340 / 460 170 / -430 660 / 660 Weight 115.269 kg 116.29 kg 119.096 kg 115.779 kg Microbiology Reports for the Last 24 Hours: Microbiology 10/20/19 10:20 Blood Blood Culture - Final NO GROWTH AFTER 5 DAYS 10/20/19 10:20 Blood Blood Culture - Final NO GROWTH AFTER 5 DAYS Assessment and Plan (1) Atrial flutter with rapid ventricular response Status: Resolved Category: Medical Code(s): I48.92 - Unspecified atrial flutter (2) History of hyperthyroidism Status: Chronic Category: Medical Code(s): Z86.39 - Personal history of other endocrine, nutritional and metabolic disease (3) Insulin dependent diabetes mellitus Status: Chronic Category: Medical Code(s): E11.9 - Type 2 diabetes mellitus without complications; Z79.4 - FPC (current) use of insulin (4) SVT (supraventricular tachycardia) Status: Resolved Category: Medical Code(s): I47.1 - Supraventricular tachycardia (5) Sepsis Status: Resolved Category: Medical Code(s): A41.9 - Sepsis, unspecified organism (6) UTI (urinary tract infection) Status: Resolved Qualifiers: Urinary tract infection type: acute pyelonephritis Qualified Code(s): N10 - Acute pyelonephritis Category: Medical Code(s): N39.0 - Urinary tract infection, site not specified (7) Acute kidney injury Status: Resolved Category: Medical Code(s): N17.9 - Acute kidney failure, unspecified The patient's infection will respond to the chosen ABx?: Yes Is the patient receiving the right drug, dose, and route?: Yes Could a more targeted ABx be ordered?: No
--- NOTE | 2019-10-27 15:32 | Electrocardiograph Report ---
APPROVED REPORT Exam: Resting ECG HR:63 bpm ECG Measurements Heart Rate 63 AXES CA 212 P 11 QRSd 78 QRS 37 QT 448 T18 QTc 458 <Conclusion> Sinus rhythm with 1st degree AV block Otherwise normal ECG Electronically signed by : Johnathan Cohen, 10/27/2019 15:31:54
== END 2019-10-26 11:10 | disposition home or self-care (01) | DRG 689 ==
LOC: 2ND 10:03 → ER 10:03 → OBSVTOIN 13:11 → 2ND 13:12
PROVIDERS: ADMIT Internal Medicine Adolescent Medicine; ATTEND Internal Medicine Adolescent Medicine
CPT/HCPCS: 36415; 70450; 71010; 71045; 80048; 80053; 81001; 82962; 83036; 83605; 83735; 83880; 84436; 84443; 84479; 84484; 85025; 87040; 87070; 87086; 87088; 87186; 87205; 87507; 93005; 93306; 93458; 94640; 94761; 96365; 96366; 96367; 97161; 97166; 99152; 99285; C1725; C1769; J1610; J1644; Q9967

== ENCOUNTER → 2019-11-02 13:09 | Outpatient (CLI) | payer MEDICARE, SELFPAY ==
[2019-11-02 13:31] LABS: Basophils % 0.5 % (0.1-2.0); Eosinophils # 0.3 K/mm3 (0.0-0.4); Eosinophils % 3.1 % (0.1-12.0); Hematocrit 40.5 % (37.0-47.0); Hemoglobin 13.6 g/dL (12.2-16.2); Lymphocytes # 2.4 K/mm3 (0.7-4.5); Lymphocytes % 29.7 % (10-50); Mean Corpuscular HGB Conc 33.6 g/dL (31.8-35.4); Mean Corpuscular Hemoglobin 30.5 pg (27.0-31.2); Mean Corpuscular Volume 90.9 fl (81-99); Mean Platelet Volume 7.7 fl (7.4-10.4); Monocytes # 0.4 K/mm3 (0.1-1.0); Monocytes % 5.3 % (1.7-9.3); Neutrophils # 4.9 K/mm3 (1.8-7.8); Neutrophils % 61.5 % (37.0-80.0); Platelet Count 275 K/mm3 (142-424); Red Blood Count 4.46 M/mm3 (4.20-5.40); Red Cell Distribution Width 14.5 % (11.5-17.5)
[2019-11-02 13:56] LABS: Anion Gap 16.3 mEq/L (5-15); Blood Urea Nitrogen 27 mg/dL (7-18); Calcium 8.6 mg/dL (8.5-10.1); Carbon Dioxide 25 mmol/L (21.0-32.0); Chloride 104 mmol/L (98-107); Creatinine,Serum 1.39 mg/dL (0.55-1.02); Estimated Glomerular Filt Rate 37 ml/min (>60); GFR (African American) 45 ML/MIN (>60); Glucose 204 mg/dL (74-106); Potassium 5.3 mmoL/L (3.5-5.1); Sodium 140 mmol/L (137-145)
== END ==
PROVIDERS: Visit Provider Internal Medicine Adolescent Medicine
DX: I50.22 Chronic systolic (congestive) heart failure (principal)
CPT/HCPCS: 36415; 80048; 85025

== ENCOUNTER → 2019-11-25 13:45 | Outpatient (CLI) | payer MEDICARE, SELFPAY ==
--- NOTE | 2019-11-25 13:52 | XR_ITS ---
PROCEDURE: XR FOOT LT MIN 3V CLINICAL INDICATION: DIABETIC NEUROPATHY,LT FOOT PAIN Diabetic peripheral neuropathy with limited mobility COMPARISON: No exams were available for comparison FINDINGS: There is generalized osteopenia. No acute fracture or dislocation. No lytic or blastic change. Generalized vascular calcification. There is a small calcaneal spur Other findings:None. IMPRESSION: No acute findings. Dictated by: Michael Barnes MD 11/25/2019 16:30 Electronically signed by Michael Barnes MD in [facility] 11/25/2019 16:30
--- NOTE | 2019-11-25 13:52 | XR_ITS ---
PROCEDURE: XR FOOT RT MIN 3V CLINICAL INDICATION: DIABETIC NEUROPATHY,RT FOOT PAIN COMPARISON: No exams were available for comparison FINDINGS: There is diffuse osteopenia with generalized vascular calcification. No acute fracture or dislocation. No lytic or blastic change. The joint spaces are well-preserved. No significant degenerative/arthritic changes. No erosive changes evident. Other findings:None. IMPRESSION: No acute findings. Dictated by: Michael Barnes MD 11/25/2019 16:31 Electronically signed by Michael Barnes MD in [facility] 11/25/2019 16:31
== END ==
PROVIDERS: PCP Internal Medicine Adolescent Medicine; Visit Provider Internal Medicine Adolescent Medicine
DX: E11.42 Type 2 diabetes mellitus with diabetic polyneuropathy (principal); M79.672 Pain in left foot; M79.671 Pain in right foot; Z79.4 Long term (current) use of insulin
CPT/HCPCS: 73630

== ENCOUNTER → 2019-11-28 10:40 | Outpatient (CLI) | payer MEDICARE, SELFPAY ==
[2019-11-28 11:34] LABS: Basophils % 0.2 % (0.1-2.0); Eosinophils # 0.2 K/mm3 (0.0-0.4); Eosinophils % 2.1 % (0.1-12.0); Hematocrit 37.2 % (37.0-47.0); Hemoglobin 12.1 g/dL (12.2-16.2); Lymphocytes # 2.6 K/mm3 (0.7-4.5); Lymphocytes % 26.1 % (10-50); Mean Corpuscular HGB Conc 32.4 g/dL (31.8-35.4); Mean Corpuscular Hemoglobin 29.6 pg (27.0-31.2); Mean Corpuscular Volume 91.3 fl (81-99); Mean Platelet Volume 7.8 fl (7.4-10.4); Monocytes # 0.5 K/mm3 (0.1-1.0); Monocytes % 4.6 % (1.7-9.3); Neutrophils # 6.6 K/mm3 (1.8-7.8); Platelet Count 310 K/mm3 (142-424); Red Blood Count 4.08 M/mm3 (4.20-5.40); Red Cell Distribution Width 15.1 % (11.5-17.5); White Blood Count 9.8 K/mm3 (4.8-10.8)
[2019-11-28 12:27] LABS: Erythrocyte Sedimentation Rate 73 mm/hr (0-30)
[2019-11-28 12:43] LABS: Hemoglobin A1C 8.3 % (4.0-6.0)
[2019-11-28 12:45] LABS: Alanine Aminotransferase 21 U/L (12-78); Albumin Level 3.3 g/dl (3.5-5.0); Albumin/Globulin Ratio 1.1 (1.1-1.8); Alkaline Phosphatase 97 U/L (38-126); Anion Gap 12.8 mEq/L (5-15); Aspartate Amino Transferase 20 U/L (14-36); Bilirubin,Total 0.5 mg/dl (0.2-1.3); Blood Urea Nitrogen 32 mg/dl (7-17); Calcium 9.1 mg/dl (8.4-10.2); Carbon Dioxide 23 mmol/L (22.0-30.0); Chloride 104 mmol/L (98-107); Estimated Glomerular Filt Rate 44 ml/min (>60); GFR (African American) 53 ML/MIN (>60); Glucose 295 mg/dl (74-100); Potassium 4.8 mmoL/L (3.5-5.1); Sodium 135 mmol/L (136-145); Total Protein,Serum 6.3 g/dl (6.3-8.2); Uric Acid 9.1 mg/dl (2.5-6.2)
[2019-11-28 12:50] LABS: C-Reactive Protein 7.1 mg/L (0-4)
== END ==
PROVIDERS: Visit Provider Podiatrist
DX: E11.621 Type 2 diabetes mellitus with foot ulcer (principal); L97.509 Non-pressure chronic ulcer of other part of unspecified foot with unspecified severity; Z79.4 Long term (current) use of insulin
CPT/HCPCS: 36415; 80053; 83036; 84550; 85025; 85651; 86140

== ENCOUNTER 2019-12-12 13:42 | Outpatient (RCR) | payer MEDICARE, SELFPAY ==
--- NOTE | 2019-12-12 15:13 | HMH.PTOPWND ---
Rehab Outpt Wound Evaluation Rehab OP Wound Evaluation Start: 12/12/19 14:02 Freq: Status: Active Protocol: Document 12/12/19 15:01 KIT (Rec: 12/12/19 15:12 PHORODDY [id number]) Electronically Signed By Joshua Delaney, PT 12/12/19 15:01 Subjective/History History History Pt is 74 yowf who presents with R medial 1st MT wound x ~ 1 mos with insidious onset of symptoms. Sharp debridement was performed by DPM at her last office visit. She has hx of DM-II with last A1c of 8.3% . 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 SHe has hx of A-fib, HL, PAD, supraventricular tachycardia, cardiac cath, thyroidectomy. Subjective Subjective Pt has neuropathy with limited sensation to B feet. She has weak palpable DP pulse on the R foot. She reports no c/o pain at this time. 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 Yes Wound Length (cm) 2.0 Wound Width (cm) 2.0 Wound Bed Appearance Beefy Red,Yellow Percentage Granulated (%) 95 Percentage of Slough (%) 5 Wound Margins Description Macerated Surrounding Tissue Appearance Purple Drainage Amount Moderate Wound Topical Solution/Irrigant Antibiotic Irrigant Primary Dressing collagen Comment puracol Wound Secondary Dressing Type Composite,Gauze Roll/Wrap Comment optifoam gentle Wound Debridement Method Sharps,Forceps,Gauze Wound Debridement Amount of Tissue Minimal Removed Wound Debridement Result Healthy Tissue Revealed Dressing Change Patient Tolerance Tolerated Well Wound Problems/Impairments Impairments Problems/Impairmments Impaired Strength,Impaired Endurance,Impaired Gait Pattern,Impaired Walking, Impaired Standing,Wound Care Needs,Subjective C/O Pain, Impaired Self Care/Self Management Prognosis Rehab Potential Fair Comment significant likelihood of further infection without treatment. Clinical Impression Consistent with Diagnosis
== END 2019-12-12 13:45 | disposition home or self-care (01) ==
LOC: PT 13:42
PROVIDERS: PCP Internal Medicine Adolescent Medicine; Visit Provider Podiatrist
DX: E11.621 Type 2 diabetes mellitus with foot ulcer (principal); L97.519 Non-pressure chronic ulcer of other part of right foot with unspecified severity
CPT/HCPCS: 97162

== ENCOUNTER 2020-03-12 14:00 | Outpatient (RCR) | payer MEDICARE, SELFPAY ==
--- NOTE | 2020-02-27 14:50 | HMH.RHREAS ---
Rehab Reassessment Rehab OP Re-assessment Start: 02/27/20 14:27 Freq: Status: Active Protocol: Document 02/27/20 14:41 KIT (Rec: 02/27/20 14:49 KIT [id number]) Electronically Signed By Joshua Delaney, PT 02/27/20 14:41 Rehab Re-assessment Subjective Subjective Pt reports she had increased bleeding from her R great toe wound. Objective Objective Notes R medial great toe wound: L= 1 .2 cm, W= 1.4 cm. Increased serosanguineous drainage noted and sharp excisional debridement of devitalized tissue. Assessment Progress Assessment Progressing as Expected Assessment Notes Wound healing, but continues to need excisional debridement at this time. Patient goals met none Goals Not Met ST,2 LT,2 Revised Goals none Plan Plan Continue per initial POC. Frequency of Therapy 2 x/wk Duration of therapy 8 wks Time and Billing Re-Eval Time 15 Re-Eval Billing Units 1 PHYSICIAN CERTIFICATION: I certify the specified therapy services for Akua Mary Thomas are required, authorized, and reviewed every 30 days.
== END 2020-03-12 14:05 | disposition home or self-care (01) ==
LOC: PT 14:00
PROVIDERS: PCP Internal Medicine Adolescent Medicine; Visit Provider Podiatrist
DX: E11.621 Type 2 diabetes mellitus with foot ulcer (principal); L97.519 Non-pressure chronic ulcer of other part of right foot with unspecified severity
CPT/HCPCS: 97161; 97164; 97597

== ENCOUNTER → 2020-07-20 09:48 | Outpatient (CLI) | payer MEDICARE, SELFPAY ==
[2020-07-20 10:56] LABS: Hemoglobin A1C 8.2 % (4.0-6.0)
[2020-07-20 11:33] LABS: Chloride 103 mmol/L (98-107); Potassium 4.2 mmoL/L (3.5-5.1); Sodium 137 mmol/L (136-145)
[2020-07-20 11:35] LABS: Blood Urea Nitrogen 25 mg/dl (7-17); Estimated Glomerular Filt Rate 40 ml/min (>60); GFR (African American) 48 ML/MIN (>60)
[2020-07-20 11:36] LABS: Alanine Aminotransferase 15 U/L (12-78); Albumin Level 3.4 g/dl (3.5-5.0); Albumin/Globulin Ratio 1.3 (1.1-1.8); Alkaline Phosphatase 99 U/L (38-126); Anion Gap 11.2 mEq/L (5-15); Aspartate Amino Transferase 22 U/L (14-36); Bilirubin,Total 0.6 mg/dl (0.2-1.3); Calcium 9.3 mg/dl (8.4-10.2); Carbon Dioxide 27 mmol/L (22.0-30.0); Cholesterol 114 mg/dl (140-200); Globulin 2.7 g/dL (1.3-3.2); Glucose 178 mg/dl (74-100); Total Protein,Serum 6.1 g/dl (6.3-8.2); Triglycerides 224 mg/dl (30-150); VLDL Cholesterol 45 mg/dL (0-40)
[2020-07-20 11:37] LABS: Chol/HDL Ratio 3.6 (1-3.5); HDL Cholesterol 32 mg/dl (40-60)
[2020-07-20 11:47] LABS: Direct LDL Cholesterol 46.35 mg/dL (100-129)
[2020-07-20 12:06] LABS: Thyroid Stimulating Hormone 0.97 uIU/mL (0.465-4.68)
== END ==
PROVIDERS: Visit Provider Internal Medicine Adolescent Medicine
DX: E03.9 Hypothyroidism, unspecified (principal); E11.9 Type 2 diabetes mellitus without complications; Z79.4 Long term (current) use of insulin
CPT/HCPCS: 36415; 80053; 80061; 83036; 84443

== ENCOUNTER → 2021-03-22 08:30 | Outpatient (CLI) | payer MEDICARE, SELFPAY ==
[2021-03-22 08:56] LABS: Basophils # 0.1 K/mm3 (0-0.2); Basophils % 0.8 % (0.1-2.0); Eosinophils # 0.3 K/mm3 (0.0-0.4); Eosinophils % 4.4 % (0.1-12.0); Hematocrit 37.9 % (37.0-47.0); Hemoglobin 12.5 g/dL (12.2-16.2); Lymphocytes # 2.9 K/mm3 (0.7-4.5); Lymphocytes % 41.4 % (10-50); Mean Corpuscular Hemoglobin 29.5 pg (27.0-31.2); Mean Corpuscular Volume 89.4 fl (81-99); Mean Platelet Volume 7.2 fl (7.4-10.4); Monocytes # 0.5 K/mm3 (0.1-1.0); Neutrophils # 3.2 K/mm3 (1.8-7.8); Neutrophils % 46.4 % (37.0-80.0); Platelet Count 286 K/mm3 (142-424); Red Blood Count 4.25 M/mm3 (4.20-5.40); Red Cell Distribution Width 15.1 % (11.5-17.5); White Blood Count 6.9 K/mm3 (4.8-10.8)
[2021-03-22 09:09] LABS: Chloride 104 mmol/L (98-107)
[2021-03-22 09:10] LABS: Potassium 4.2 mmoL/L (3.5-5.1); Sodium 140 mmol/L (136-145)
[2021-03-22 09:12] LABS: Alanine Aminotransferase 14 U/L (12-78); Alkaline Phosphatase 111 U/L (38-126); Anion Gap 13.2 mEq/L (5-15); Aspartate Amino Transferase 22 U/L (14-36); Bilirubin,Total 0.7 mg/dl (0.2-1.3); Blood Urea Nitrogen 25 mg/dl (7-17); Carbon Dioxide 27 mmol/L (22.0-30.0); Cholesterol 104 mg/dl (140-200); Estimated Glomerular Filt Rate 40 ml/min (>60); GFR (African American) 48 ML/MIN (>60); Triglycerides 202 mg/dl (30-150); VLDL Cholesterol 40 mg/dL (0-40)
[2021-03-22 09:13] LABS: Albumin Level 3.8 g/dl (3.5-5.0); Albumin/Globulin Ratio 1.3 (1.1-1.8); Calcium 8.9 mg/dl (8.4-10.2); Chol/HDL Ratio 3.6 (1-3.5); Globulin 2.9 g/dL (1.3-3.2); Glucose 211 mg/dl (74-100); HDL Cholesterol 29 mg/dl (40-60); Total Protein,Serum 6.7 g/dl (6.3-8.2)
[2021-03-22 09:24] LABS: Direct LDL Cholesterol 38.27 mg/dL (100-129)
[2021-03-22 09:43] LABS: Thyroid Stimulating Hormone 1.84 uIU/mL (0.465-4.68)
[2021-03-22 09:46] LABS: Hemoglobin A1C 8.3 % (4.0-6.0)
== END ==
PROVIDERS: Visit Provider Internal Medicine Adolescent Medicine
DX: E11.9 Type 2 diabetes mellitus without complications (principal); E03.9 Hypothyroidism, unspecified; Z79.4 Long term (current) use of insulin
CPT/HCPCS: 36415; 80053; 80061; 83036; 84443; 85025

== ENCOUNTER 2022-03-27 21:02 | Inpatient (IN) | payer MEDICARE, SELFPAY ==
[2022-03-27 20:43] VITALS: BP 117/49; PULSE 83; RESP 16; TEMP 36.9; O2SAT 100; BMI 29.9
[2022-03-27 20:58] LABS: Basophils # 0.2 K/mm3 (0-0.2); Basophils % 0.9 % (0.1-2.0); Eosinophils # 0.4 K/mm3 (0.0-0.4); Eosinophils % 2.5 % (0.1-12.0); Hemoglobin 12.1 g/dL (12.2-16.2); Lymphocytes # 3.9 K/mm3 (0.7-4.5); Lymphocytes % 22.3 % (10-50); Mean Corpuscular HGB Conc 31.1 g/dL (31.8-35.4); Mean Corpuscular Hemoglobin 28.1 pg (27.0-31.2); Mean Corpuscular Volume 90.4 fl (81-99); Mean Platelet Volume 8.3 fl (7.4-10.4); Monocytes # 0.8 K/mm3 (0.1-1.0); Monocytes % 4.4 % (1.7-9.3); Neutrophils # 12.1 K/mm3 (1.8-7.8); Neutrophils % 69.9 % (37.0-80.0); Platelet Count 427 K/mm3 (142-424); Red Blood Count 4.32 M/mm3 (4.20-5.40); Red Cell Distribution Width 15.8 % (11.5-17.5); White Blood Count 17.3 K/mm3 (4.8-10.8)
[2022-03-27 21:00] VITALS: BP 117/49; PULSE 82; O2SAT 100
[2022-03-27 21:03] LABS: MANUAL DIFFERENTIAL MANUAL DIFFERENTIAL (MANUAL DIFF)
--- NOTE | 2022-03-27 21:06 | ECG_ITS ---
APPROVED REPORT Exam: Resting ECG HR:76 bpm ECG Measurements Heart Rate 76 AXES MN 181 P 43 QRSd 103 QRS 44 QT 404 T 47 QTc 434 Conclusion SINUS RHYTHM WITH SINUS ARRHYTHMIA LOW QRS VOLTAGE IN PRECORDIAL LEADS [QRS DEFLECTION < 1.0 mV IN CHEST LEADS] BORDERLINE ECG UNCONFIRMED REPORT Electronically signed by : Johnathan Cohen MD 03/31/2022 14:10:37
[2022-03-27 21:07] LABS: Alanine Aminotransferase 27 U/L (12-78); Albumin Level 3.5 g/dl (3.5-5.0); Alkaline Phosphatase 117 U/L (38-126); Amylase 66 U/L (30-110); Anion Gap 16.8 mEq/L (5-15); Aspartate Amino Transferase 42 U/L (14-36); Bilirubin,Total 0.8 mg/dl (0.2-1.3); Blood Urea Nitrogen 35 mg/dl (7-17); Calcium 8.7 mg/dl (8.4-10.2); Carbon Dioxide 22 mmol/L (22.0-30.0); Chloride 102 mmol/L (98-107); Creatinine Clearance Estimated 37 mL/min (50-200); Estimated Glomerular Filt Rate 31 ml/min (>60); GFR (African American) 38 ML/MIN (>60); Globulin 3.6 g/dL (1.3-3.2); Glucose 140 mg/dl (74-100); Lipase 163 U/L (23-300); Potassium 4.8 mmoL/L (3.5-5.1); Sodium 136 mmol/L (136-145); Total Protein,Serum 7.1 g/dl (6.3-8.2)
[2022-03-27 21:09] LABS: Microscopic, Urine URINE MICROSCOPIC (MICROSCOPIC)
--- NOTE | 2022-03-27 21:12 | XR_ITS ---
PROCEDURE INFORMATION: Exam: XR Chest Exam date and time: 03/27/2022 9:40 PM Age: 76 years old Clinical indication: Other: Low BP; Additional info: Lower BP TECHNIQUE: Imaging protocol: Radiologic exam of the chest. Views: 1 view. COMPARISON: CR XR CHEST PORTABLE 10/20/2019 10:45 AM FINDINGS: Lungs: Unremarkable. No consolidation. Pleural spaces: Unremarkable. No pleural effusion. No pneumothorax. Heart/Mediastinum: Unremarkable. No cardiomegaly. Bones/joints: Unremarkable. IMPRESSION: No acute findings.
--- NOTE | 2022-03-27 21:12 | CT_ITS ---
PROCEDURE INFORMATION: Exam: CT Abdomen And Pelvis With Contrast Exam date and time: 03/27/2022 9:34 PM Age: 76 years old Clinical indication: Abdominal pain; Additional info: Abd pain TECHNIQUE: Imaging protocol: Computed tomography of the abdomen and pelvis with contrast. Radiation optimization: All CT scans at this facility use at least one of these dose optimization techniques: automated exposure control; mA and/or kV adjustment per patient size (includes targeted exams where dose is matched to clinical indication); or iterative reconstruction. Contrast material: ISOVUE; Contrast volume: 75 ml; Contrast route: IV; COMPARISON: CR XR CHEST PORTABLE 10/20/2019 10:45 AM FINDINGS: Lungs: The lung bases are clear. No pleural effusion. Liver: Unremarkable. No mass. Gallbladder and bile ducts: Absent. Pancreas: Unremarkable. Spleen: Unremarkable. Adrenal glands: Unremarkable. Kidneys and ureters: No renal mass or hydronephrosis. There are 2 mm and 3 mm nonobstructing right renal stones. Stomach and bowel: Small bowel caliber is normal. Proximal colon is unremarkable. There is mild diverticulosis of the left colon. There is circumferential wall thickening descending colon which appears somewhat eccentric and with mild stranding of the adjacent fat. No significant free fluid or findings to suggest abscess. There is a marked amount of stool in the rectosigmoid distention of the rectum measuring up 9 cm consistent with impaction. There is mild stranding of the adjacent fat without significant wall thickening of the rectum. Appendix: No evidence of appendicitis. Intraperitoneal space: No free air. No significant fluid collection. Retroperitoneal space: No bulky lymphadenopathy. Vasculature: Unremarkable. No abdominal aortic aneurysm. Lymph nodes: Unremarkable. No enlarged lymph nodes. Urinary bladder: There is a Glass catheter within the decompressed urinary bladder. Reproductive: Unremarkable as visualized. Bones/joints: No suspicious osseous lesions. Soft tissues: There is thinning of the anterior abdominal wall musculature with laxity asymmetric to the right. There is a small hiatus hernia. IMPRESSION: 1. Circumferential wall thickening of the descending colon appearing somewhat eccentric suspicious for diverticulitis or colitis. Neoplasm could also have this appearance. No evidence of significant fluid collection or abscess. 2. Large amount of stool within the rectosigmoid consistent with impaction. 3. Additional nonemergent findings as above.
[2022-03-27 21:13] LABS: C-Reactive Protein 32.8 mg/L (0-4)
[2022-03-27 21:27] LABS: Erythrocyte Sedimentation Rate 60 mm/hr (0-30); Procalcitonin 0.174 ng/mL (0.0-2.0)
[2022-03-27 21:32] LABS: Coronavirus 19, PCR Not Detected (NotDetected); Influenza A, PCR Not Detected (NotDetected); Influenza B, PCR Not Detected (NotDetected)
[2022-03-27 21:33] LABS: Troponin I < 0.01 ng/ml (0.00-0.034)
[2022-03-27 21:35] LABS: Bilirubin,Urine Negative (Negative); Blood, Urine 3+ (Negative); Color,Urine YELLOW (Yellow); Glucose,Urine (UA) Negative (Negative); Ketones,Urine Negative (Negative); Leukocyte Esterase,Urine 2+ (Negative); Nitrate,Urine POSITIVE (Negative); Protein,Urine 1+ (Negative); Specific Gravity, Urine >= 1.030 (1.005-1.030)
[2022-03-27 21:36] LABS: Appearance,Urine Cloudy (Clear)
[2022-03-27 21:37] LABS: Bacteria,Urine 3+ /lpf; Mucus,Urine 1+ /lpf
[2022-03-27 22:00] VITALS: BP 116/52; PULSE 79; O2SAT 95
[2022-03-27 22:20] LABS: Lymphocytes % 32 % (10-50); Monocytes % 2 % (2-9); Neutrophils % 66 % (42-76); Platelet Estimate Normal; Total Cells Counted 100
[2022-03-27 23:00] VITALS: BP 130/53; PULSE 86; O2SAT 99
[2022-03-27 23:30] VITALS: BP 132/52; PULSE 84; O2SAT 97
--- NOTE | 2022-03-27 23:48 | HMH.EDWEAK ---
ED Disposition Clinical Impression: Diverticulitis, Severe sepsis with acute organ dysfunction, Type 2 diabetes mellitus with diabetic neuropathy, with long-term current use of insulin Sacral decubitus ulcer Qualifiers: Pressure injury stage: stage 2 Qualified Code(s): L89.152 - Pressure ulcer of sacral region, stage 2 Disposition: Admitted As Inpatient Condition on Discharge: Serious Referrals: Johnathan Cohen MD [Primary Care Provider] - - Critical Care Critical Care Time: No Attestation: On 03/27/22, the high probability of a clinically significant, sudden or life threatening deterioration of the following system(s) required my full and direct attention, intervention and personal management. The time I documented below is in addition to time spent performing reported procedures but includes the following listed in this critical care notation. Medical Decision Making - Medical Records Medical records reviewed: Yes: I reviewed the patient's medical records. - Gibran Inquiry Pt receiving controlled substance: No Vital Signs: 03/27/22 20:43 Temperature 98.5 F Temperature Source Oral Pulse Rate [Right] 83 Respiratory Rate 16 Blood Pressure [Right Arm] 117/49 L Blood Pressure Mean [Right Arm] 71 02 Sat by Pulse Oximetry 100 - Lab Data Lab results reviewed: Yes: I reviewed the patient's lab results. Lab Results 03/27/22 20:50: WBC 17.3 H, RBC 4.32, Hgb 12.1 L, Hct 39.0, MCV 90.4, MCH 28.1, MCHC 31.1 L, RDW 15.8, Plt Count 427 H, MPV 8.3, Neut % (Auto) 69.9, Lymph % (Auto) 22.3, [place] % (Auto) 4.4, Eos % (Auto) 2.5, Baso % (Auto) 0.9, Neut # (Auto) 12.1 H, Lymph # (Auto) 3.9, [place] # (Auto) 0.8, Eos # (Auto) 0.4, Baso # (Auto) 0.2, Total Counted 100, Neutrophils % (Manual) 66, Lymphocytes % (Manual) 32, Monocytes % (Manual) 2, Platelet Estimate Normal, RBC Morphology Not Reportable, ESR 60 H 03/27/22 20:50: Sodium 136, Potassium 4.8, Chloride 102, Carbon Dioxide 22, Anion Gap 16.8 H, BUN 35 H, Creatinine 1.60 H, Estimated Creat Clear 37, Estimated GFR 31 L, Est GFR ( Amer) 38 L, Glucose 140 H, Calcium 8.7, Total Bilirubin 0.8, AST 42 H, ALT 27, Alkaline Phosphatase 117, Troponin I < 0.01, C-Reactive Protein 32.8 H, Total Protein 7.1, Albumin 3.5, Globulin 3.6 H, Albumin/Globulin Ratio 1.0 L, Amylase 66, Lipase 163, Procalcitonin 0.174 03/27/22 21:00: Urine Color Yellow, Urine Appearance Cloudy, Urine pH 6.0, Ur Specific [place] >= 1.030, Urine Protein 1+, Urine Glucose (UA) Negative, Urine Ketones Negative, Urine Blood 3+, Urine Nitrate Positive, Urine Bilirubin Negative, Urine Urobilinogen 1.0, Ur Leukocyte Esterase 2+ A, Urine RBC 5-10, Urine WBC 5-10, Ur Squamous Epith Cells 3-5, Urine Bacteria 3+, Urine Mucus 1+ 03/27/22 21:25: Lactate 3.0 H 03/27/22 21:25: SARS-CoV-2 (PCR) Not detected, Influenza A Untype (PCR) Not detected, Influenza Type B (PCR) Not detected Result diagrams: 03/27/22 20:50 03/27/22 20:50 Orders (Tests/Meds): ED MEDICATIONS Generic Name Dose Route Start Last Admin Trade Name Freq PRN Reason Stop Dose Admin Sodium Chloride 1,000 mls @ 999 mls/hr 03/27/22 21:00 03/27/22 20:53 Sod Chlor 0.9% 1000ml Bag IV 03/27/22 22:00 999 mls/hr .Q1H1M BEATRIZ Administration Sodium Chloride 1,000 mls @ 999 mls/hr 03/27/22 23:00 03/27/22 22:50 Sod Chlor 0.9% 1000ml Bag IV 03/28/22 00:00 999 mls/hr .Q1H1M BEATRIZ Administration Discontinued Medications Generic Name Dose Route Start Last Admin Trade Name Freq PRN Reason Stop Dose Admin Iopamidol 75 ml 03/27/22 21:47 03/27/22 21:49 Iopamidol-370 (76%);100ml Bottle IV 03/27/22 21:48 75 ml ONCE ONE Administration Ondansetron HCl 4 mg 03/27/22 22:51 03/27/22 23:12 Ondansetron 4mg/2ml Vial IV 03/27/22 22:52 4 mg ONCE ONE Administration Sodium Chloride 10 ml 03/27/22 21:47 03/27/22 21:49 Sodium Chloride 0.9% 10ml Syr (Rad Only) IV 03/27/22 21:48 10 ml ONCE ONE Administration ORDERS Categ
--- NOTE | 2022-03-27 23:51 | PC.NURSE ---
Dr imelda garcia
[2022-03-27 23:52] LABS: Occult Blood,Stool Negative (Negative)
--- NOTE | 2022-03-27 23:55 | PC.NURSE ---
imelda returned call. admit agreed. sepsis with orgran dysfunction.
[2022-03-28] VITALS (9 sets, daily range): BP systolic 82–147; BP diastolic 48–70; PULSE 66–140; RESP 16–26; TEMP 36.5–36.9; O2SAT 89–99; BMI 35.1
--- NOTE | 2022-03-28 | ECG_ITS ---
APPROVED REPORT Exam: Resting ECG HR:132 bpm ECG Measurements Heart Rate 132 AXES UT 202 P 63 QRSd 86 QRS 19 QT 329 T 65 QTc 407 Conclusion SINUS TACHYCARDIA LOW QRS VOLTAGE IN PRECORDIAL LEADS [QRS DEFLECTION < 1.0 mV IN CHEST LEADS] MODERATE ST DEPRESSION [0.05+ mV ST DEPRESSION] ABNORMAL ECG UNCONFIRMED REPORT Electronically signed by : Johnathan Cohen MD 03/31/2022 14:09:34
--- NOTE | 2022-03-28 00:10 | PC.NURSE ---
Patient required nursing assist to clean up following disimpaction by physician. Noted patient to have large amount of damaged tissue to the sacral area. Wound consult added per DENA Osman. Large BM sample removed from patient during disimpaction. Washed patient with soap and water, patted perianal area dry. Repositioned onto right side and adjusted on stretcher. Patient adamant I can't lay on my back so I sit up in the recliner at home . Discussed the damage of remaining in one position too long with both patient and daughter. called report to DENA Pérez on 2nd floor and advised of the skin issues associated with groin and buttocks. IVF's finishing at this time.
[2022-03-28 01:10] LABS: Reflex Lactic Add Lactic Reflex
--- NOTE | 2022-03-28 01:13 | PC.NURSE ---
PT ARRIVED TO FLOOR VIA STRETCHER FROM ED W/STAFF @ [id number]
[2022-03-28 01:39] LABS: Lactic Acid Follow Up (RFLX 1) 1.7 mmol/L (0.7-2.1)
--- NOTE | 2022-03-28 04:00 | PC.NURSE ---
pt admitted this shift, pt medicated for pain in abdomen, pt states it feels like she is trying to push a baby out, pt with intermittent dry heaves as well and medicated with zofran, numerous areas on skin that are broken; irritated and yeasty/rashy on coccyx and buttock area, under breasts; under pannus and in groin area into vaginal area; skin very dry and scaly with scattered bruising; see wound pics; bilateral lower extremity edema, pt a&o x4; pt completely immobile at this time and requires assistance to turn, f/c to bsd noted with dark yellow brown urine with sediment, VSS at this time, no other issues noted, pt daughter at bedside.
[2022-03-28 06:56] LABS: Basophils # 0.1 K/mm3 (0-0.2); Basophils % 0.3 % (0.1-2.0); Eosinophils # 0.2 K/mm3 (0.0-0.4); Hematocrit 35.7 % (37.0-47.0); Hemoglobin 11.6 g/dL (12.2-16.2); Lymphocytes # 1.9 K/mm3 (0.7-4.5); Lymphocytes % 9.2 % (10-50); Mean Corpuscular HGB Conc 32.5 g/dL (31.8-35.4); Mean Corpuscular Hemoglobin 28.3 pg (27.0-31.2); Mean Corpuscular Volume 87.1 fl (81-99); Mean Platelet Volume 7.7 fl (7.4-10.4); Monocytes # 0.6 K/mm3 (0.1-1.0); Monocytes % 3.1 % (1.7-9.3); Neutrophils # 17.6 K/mm3 (1.8-7.8); Neutrophils % 86.4 % (37.0-80.0); Platelet Count 358 K/mm3 (142-424); Red Cell Distribution Width 16.1 % (11.5-17.5); White Blood Count 20.4 K/mm3 (4.8-10.8)
[2022-03-28 07:00] LABS: MANUAL DIFFERENTIAL MANUAL DIFFERENTIAL (MANUAL DIFF)
[2022-03-28 07:06] LABS: Anion Gap 13.7 mEq/L (5-15); Blood Urea Nitrogen 29 mg/dl (7-17); Calcium 7.9 mg/dl (8.4-10.2); Carbon Dioxide 20 mmol/L (22.0-30.0); Chloride 108 mmol/L (98-107); Creatinine Clearance Estimated 51 mL/min (50-200); Estimated Glomerular Filt Rate 40 ml/min (>60); GFR (African American) 48 ML/MIN (>60); Glucose 170 mg/dl (74-100); Potassium 3.7 mmoL/L (3.5-5.1); Sodium 138 mmol/L (136-145)
[2022-03-28 07:20] LABS: Lymphocytes % 10 % (10-50); Monocytes % 3 % (2-9); Neutrophils % 87 % (42-76); Total Cells Counted 100
[2022-03-28 07:21] LABS: Platelet Estimate Normal; RBC Morphology Normal
--- NOTE | 2022-03-28 07:34 | HMH.PHAVTE ---
[facility] VTE Monitoring - Patient Demographics Admission date: 03/27/22 Report Date: 03/28/22 Time: 07:34 Allergies/Adverse Reactions: Patient Allergies celecoxib [From CELEBREX] Allergy (Mild, Verified 01/19/20 11:29) naproxen [NAPROXEN] Allergy (Mild, Verified 01/19/20 11:29) sertraline [SERTRALINE] Allergy (Mild, Verified 01/19/20 11:29) latex [LATEX] Allergy (Unknown, Verified 01/19/20 11:29) valdecoxib [VALDECOXIB] Allergy (Unknown, Verified 01/19/20 11:29) metformin Adverse Reaction (Severe, Verified 01/19/20 11:29) Diarrhea Height: 1.6 m Weight: 89.981 kg Patient Problems: Current Active Problems Diverticulitis (Acute) Severe sepsis with acute organ dysfunction (Acute) Sacral decubitus ulcer (Acute) Type 2 diabetes mellitus with diabetic neuropathy, with long-term current use of insulin (Acute) - VTE Risk Labs: VTE Related Lab Results Hgb 11.6 g/dL (12.2-16.2) L 03/28/22 06:40 Hct 35.7 % (37.0-47.0) L 03/28/22 06:40 Plt Count 358 K/mm3 (142-424) 03/28/22 06:40 BUN 29 mg/dl (7-17) H 03/28/22 06:40 Creatinine 1.30 mg/dl (0.52-1.04) H 03/28/22 06:40 Estimated Creat Clear 51 mL/min (50-200) 03/28/22 06:40 Was VTE Risk Assessment Performed: Yes VTE Score: 4 VTE Risk Level: Low Risk - Prophylaxis VTE Prophylaxis Ordered?: Yes Types of VTE Prophylaxis: TEDS Knee High Location of Applied Device: Bilateral Lower Extremeties
--- NOTE | 2022-03-28 08:58 | HMH.HP ---
*Admission Date: 03/27/22 *Chief complaint: weakness, emesis, abdominal pain *History of present illness: 76-year-old female with multiple comorbidities, nonambulatory at home, history of A. fib, diabetes, who presented to the ER via EMS. At home was found to have low blood sugar and low blood pressure. Had been feeling poorly for several days and not eating very well. Decreased urine output over the past several days. No bowel movement for 2 to 3 days. Complaining of significant abdominal pain. On arrival to the ER, work-up including labs and imaging. CT of abdomen showed concern for descending colon diverticulitis/colitis with fecal impaction in the rectosigmoid colon. Labs concerning for sepsis with elevated lactate, leukocytosis, electrolyte disturbances. Initiated on IV fluids and broad-spectrum antibiotics. Admitted to medicine for further management. On rounds this morning, she is alert and oriented x3. Daughter at bedside. States she is still feeling quite weak and fatigued. Having regular nausea. Significant belly pain, no diarrhea or fever. [facility] History I have reviewed the patient's past medical history: Yes Medical History: Reports:: Arrhythmia, Atrial Fibrillation, Diabetes Mellitus Type 1, Diabetes Mellitus Type 2, Hyperlipidemia, Peripheral Vascular Disease, Supraventricular Tachycardia Denies:: MRSA *Have you ever received a pneumonia vaccine?: No *Have you received a flu vaccine this season?: Yes Other Medical History: Reports: Other Laterality Cases: Bilateral: Cataract Other Surgeries: Yes: Cardiac Catheterization, Cholecystectomy, Thyroidectomy, Tubal Ligation - *Social History Last grade of school completed: GED Smoking Status: Never smoker Alcohol Intake: never *Occupational Status:: disabled Housing: apartment Household Members: spouse *Travel in the last 8 weeks: None Family Hx:: Cancer, Diabetes, Heart Attack Review of Systems - Review of Systems Review of systems:: pertinent systems reviewed and negative unless documented below (14 point review of systems performed, pertinent positives and negatives as per HPI) - *Neurologic Reports weakness, Denies headache(s), Denies seizure-like activity Meds Home Medications Medication Instructions Recorded Confirmed Type Atorvastatin Calcium [Lipitor 20mg 20 mg PO HS 10/20/19 03/28/22 History Tab] Insulin Glargine,Hum.rec.anlog 45 unit SQ DAILY 10/20/19 03/28/22 History [Toujeo Max Solostar] Furosemide [Lasix 20mg tablet] 20 mg PO DAILY #30 tab 10/26/19 03/28/22 Rx Sotalol HCl [Betapace 80mg Tablet] 80 mg PO BID #60 tab 10/26/19 03/28/22 Rx aspirin 81 mg tablet,delayed 81 mg PO DAILY #30 tab 10/31/19 03/28/22 Rx release levothyroxine 25 mcg tablet 12.5 mcg PO DAILY tab 10/31/19 03/28/22 History fluticasone propionate 50 2 spray NS DAILYP PRN 11/28/19 03/28/22 History mcg/actuation nasal spray,suspension Insulin Aspart [Novolog Flexpen] 6 - 12 units SQ QID 03/28/22 03/28/22 History Spironolactone [Spironolactone 50 mg PO DAILY 03/28/22 03/28/22 History 25mg Tablet] Allergies Allergy/AdvReac Type Severity Reaction Status Date / Time celecoxib [From CELEBREX] Allergy Mild Verified 01/19/20 11:29 naproxen [NAPROXEN] Allergy Mild Verified 01/19/20 11:29 sertraline [SERTRALINE] Allergy Mild Verified 01/19/20 11:29 latex [LATEX] Allergy Unknown Verified 01/19/20 11:29 valdecoxib [VALDECOXIB] Allergy Unknown Verified 01/19/20 11:29 metformin AdvReac Severe Diarrhea Verified 01/19/20 11:29 Exam Vital signs and Labs for Last 24 Hours: Temp Pulse Resp BP Pulse Ox 98.5 F 71 26 H 147/68 H 99 03/28/22 01:47 03/28/22 02:30 03/28/22 01:47 03/28/22 01:47 03/28/22 02:30 Laboratory Results - last 24 hr 03/27/22 20:50: WBC 17.3 H, RBC 4.32, Hgb 12.1 L, Hct 39.0, MCV 90.4, MCH 28.1, MCHC 31.1 L, RDW 15.8, Plt Count 427 H, MPV 8.3, Neut % (Auto) 69.9, Lymph % (Auto) 22.3, [place] % (Auto) 4.4, Eos % (Auto) 2.5, B
--- NOTE | 2022-03-28 10:53 | DIET.NUTRFU ---
RD consulted for protein malnutrition, currently patient is on clear liquids. Will start boost clear with trays and once diet advanced will eval for fortified foods or supplements that better address protein needs. Patient was admitted with impacted bowel, Dr Rivera is hoping to address that today, that should help improve po intake. Will continue to follow diet tolerance
--- NOTE | 2022-03-28 11:19 | HMH.PTWOUND ---
Rehab Inpt Wound Evaluation Rehab IP Wound Evaluation Start: 03/28/22 00:29 Freq: ONCE Status: Active Protocol: Document 03/28/22 11:16 KIT (Rec: 03/28/22 11:19 PHORKAREN [id number]) Rehab PT Wound Assessment Subjective Subjective 76 yowf adm to [facility] with sepsis and diverticulitis. She presents from home, bed-bound and non-ambulatory, with multiple areas of skin redness and multiple decubiti to sacrum and buttocks. Wound Sacrum Wound Type Pressure Ulcer Is This a Chronic Wound Yes Wound Staging Stage II Query Text:Stage I - Unbroken, red skin, no blanching. Stage II - Skin broken, superficial skin loss involving epidermis alone or also dermis. Partial loss of skin layers. Stage III - Pressure area involves epidermis, dermis and subcutaneous tissue, full thickness skin loss. Stage IV - Pressure area involves epidermis, subcutaneous tissue, bone and other supportive tissue. Full thickness skin loss with extensive destruction of underlying tissue and structures. Wound Bed Appearance [place],White Wound Margins Description Indistinct Surrounding Tissue Appearance Purple Primary Dressing Composite Comment optifoam gentle sacrum Wound Debridement Amount of Tissue None Removed Dressing Change Patient Tolerance Tolerated Well Plan/Recommendation Comment NSG to follow for dressing changes as above, no current need for sharp excisional debridement. Eval Complexity Eval Charge Codes 17414 - Moderate Complexity PHYSICIAN CERTIFICATION: I certify the specified therapy services for Akua Thomas are required, authorized, and reviewed every 30 days.
--- NOTE | 2022-03-28 12:30 | PC.NURSE ---
Called Dr. Mejía about BP 83/52 manually, and HR 130.
--- NOTE | 2022-03-28 12:52 | HMH.PHAINT ---
MEDICATION RECONCILIATION COMPLETED ON PATIENT USING EXTERNAL FILL HISTORY FROM PHARMACY AND LIST FROM PCP OFFICE. -MARIELLA ROMAND
[2022-03-28 13:27] LABS: POC Glucose,Bedside 167 (70-110)
[2022-03-28 13:27] LABS: POC Glucose,Bedside 231 (70-110)
--- NOTE | 2022-03-28 15:38 | PC.NURSE ---
Pt is A/Ox4. She had a point of BP being 83/52 manually and HR of 133 I called and spoke with Dr. Mejía he wanted me to give her a bolus of LR. This was administered and was tolerated well. She slept on and off all day. She has been pleasant. Did an EKG and had ER MD look at it. Pt's family has been at bedside all day. She was put on clear diet and she is starting to tolerate this well.
--- NOTE | 2022-03-28 17:00 | PC.NURSE ---
Spoke with Dr. Mejía about PT's HR staying in the 130's. Gave verbal order to run LR bolus of 1000ml over 2hrs.
--- NOTE | 2022-03-28 17:05 | PC.NURSE ---
Faxed over order for LR bolus.
--- NOTE | 2022-03-28 17:43 | PC.NURSE ---
Paged [facility] Watch over LR bolus order not being in. Waiting for call back.
--- NOTE | 2022-03-28 18:00 | PC.NURSE ---
Spoke with dr segura at 1700 over pts HR staying in the 130's. He gave verbal order to give LR bolus 1000ML bag over 2hrs. I faxed over LR order to night watch at 1705. I paged nightwatch at 1743 and never got a call back. I verified order with Zeinab FERNANDES before admistering to pt at 1800. It was ran for 500ml/hr for LR 1000ML bag. Pt tolerated this well.
[2022-03-28 18:59] LABS: POC Glucose,Bedside 182 (70-110)
[2022-03-29] VITALS (16 sets, daily range): BP systolic 84–140; BP diastolic 40–103; PULSE 71–130; RESP 16–22; TEMP 36.5–36.8; O2SAT 93–99; BMI 38.0
[2022-03-29 00:17] LABS: POC Glucose,Bedside 134 (70-110)
--- NOTE | 2022-03-29 04:00 | PC.NURSE ---
pt with episode of tachycardia and hypotension through the night in which bolus of LR 500cc per telephone order from dr. armenta repeated and verified; bilateral edema, pt with decrease uop this shift with dark colored urine, stage 2 decubs on coccyx and right side of abd, pt remains tachycardic, ekg revealed sinus tachycardia; b/p with means 59-63 and improved to 66-77 after fluid bolus, pt favors the right side and encouraged to turn, when pt is turned to left side pt seems to adjust her self favoring the right side; pt is a&o x4; pt with small bm after prescribed enema given
--- NOTE | 2022-03-29 04:11 | ECG_ITS ---
APPROVED REPORT Exam: Resting ECG HR:118 bpm ECG Measurements Heart Rate 118 AXES ND 188 P 202 QRSd 107 QRS 17 QT 339 T 40 QTc 409 Conclusion SINUS TACHYCARDIA LOW QRS VOLTAGE IN EXTREMITY LEADS [QRS DEFLECTION < 0.5 mV IN LIMB LEADS] POSSIBLE ANTERIOR MYOCARDIAL INFARCTION , PROBABLY OLD [30 ms Q WAVE IN V3/V4, OR R < 0.2 mV IN V4] ABNORMAL RHYTHM ECG UNCONFIRMED REPORT Electronically signed by : Johnathan Cohen MD 03/31/2022 14:07:28
[2022-03-29 07:22] LABS: Basophils # 0.1 K/mm3 (0-0.2); Basophils % 0.5 % (0.1-2.0); Eosinophils # 0.1 K/mm3 (0.0-0.4); Eosinophils % 0.3 % (0.1-12.0); Hematocrit 36.5 % (37.0-47.0); Hemoglobin 11.3 g/dL (12.2-16.2); Lymphocytes # 2.4 K/mm3 (0.7-4.5); Lymphocytes % 8.7 % (10-50); Mean Corpuscular Volume 90.4 fl (81-99); Mean Platelet Volume 7.8 fl (7.4-10.4); Monocytes # 1.2 K/mm3 (0.1-1.0); Monocytes % 4.2 % (1.7-9.3); Neutrophils # 23.9 K/mm3 (1.8-7.8); Neutrophils % 86.3 % (37.0-80.0); Platelet Count 328 K/mm3 (142-424); Red Blood Count 4.04 M/mm3 (4.20-5.40); White Blood Count 27.7 K/mm3 (4.8-10.8)
[2022-03-29 07:53] LABS: MANUAL DIFFERENTIAL MANUAL DIFFERENTIAL (MANUAL DIFF)
[2022-03-29 08:16] LABS: Alanine Aminotransferase 16 U/L (12-78); Albumin Level 2.2 g/dl (3.5-5.0); Albumin/Globulin Ratio 0.8 (1.1-1.8); Alkaline Phosphatase 62 U/L (38-126); Anion Gap 14.3 mEq/L (5-15); Aspartate Amino Transferase 25 U/L (14-36); Bilirubin,Total 0.3 mg/dl (0.2-1.3); Blood Urea Nitrogen 28 mg/dl (7-17); Calcium 7.9 mg/dl (8.4-10.2); Carbon Dioxide 16 mmol/L (22.0-30.0); Chloride 109 mmol/L (98-107); Creatinine Clearance Estimated 59 mL/min (50-200); Estimated Glomerular Filt Rate 43 ml/min (>60); GFR (African American) 53 ML/MIN (>60); Globulin 2.6 g/dL (1.3-3.2); Glucose 118 mg/dl (74-100); Magnesium 1.6 mg/dl (1.6-2.3); Potassium 4.3 mmoL/L (3.5-5.1); Sodium 135 mmol/L (136-145); Total Protein,Serum 4.8 g/dl (6.3-8.2)
--- NOTE | 2022-03-29 09:01 | HMH.ACPN2 ---
Internal Medicine - PN: Subj *Date: 03/29/22 *Time: 13:36 Interval history: Continues to be nauseous this morning. Continues to require significant fluid overnight, blood pressure appears to have normalized however. Having episodes of A. fib on telemetry. Resumed sotalol yesterday. Remains afebrile. Having bowel movement on exam this morning. Daughter at bedside. Exam Vital signs and Labs for Last 24 Hours: Temp Pulse Resp BP Pulse Ox 98.1 F 128 H 22 114/66 99 03/29/22 04:00 03/29/22 07:00 03/29/22 07:00 03/29/22 07:00 03/29/22 07:00 Laboratory Results - last 24 hr 03/28/22 06:48: POC Glucose 167 H 03/28/22 12:23: POC Glucose 231 H 03/28/22 17:17: POC Glucose 182 H 03/28/22 21:17: POC Glucose 134 H 03/29/22 07:00: WBC 27.7 H* D, RBC 4.04 L, Hgb 11.3 L, Hct 36.5 L, MCV 90.4, MCH 28.0, MCHC 31.0 L, RDW 16.0, Plt Count 328, MPV 7.8, Neut % (Auto) 86.3 H, Lymph % (Auto) 8.7 L, [place] % (Auto) 4.2, Eos % (Auto) 0.3, Baso % (Auto) 0.5, Neut # (Auto) 23.9 H, Lymph # (Auto) 2.4, [place] # (Auto) 1.2 H, Eos # (Auto) 0.1, Baso # (Auto) 0.1 03/29/22 07:00: Sodium 135 L, Potassium 4.3, Chloride 109 H, Carbon Dioxide 16 L, Anion Gap 14.3, BUN 28 H, Creatinine 1.20 H, Estimated Creat Clear 59, Estimated GFR 43 L, Est GFR ( Amer) 53 L, Glucose 118 H, Calcium 7.9 L, Magnesium 1.6, Total Bilirubin 0.3, AST 25 D, ALT 16 D, Alkaline Phosphatase 62, Total Protein 4.8 L D, Albumin 2.2 L D, Globulin 2.6, Albumin/Globulin Ratio 0.8 L I & O for Last 24 hours: Intake & Output 07/06/22 07/07/22 07/08/22 07/09/22 23:59 23:59 23:59 23:59 Intake Total 7290 / 7290 1591 / 1591 Output Total 1600 / 1600 350 / 350 Balance 5690 / 5690 1241 / 1241 Weight 81.647 kg 89.98 kg 97.296 kg Microbiology Reports for the Last 24 Hours: Microbiology 03/27/22 21:00 Urine,Catheterized Urine Culture - Preliminary Narrative: - Constitutional mild distress, obese, chronically ill appearing, cooperative - *Routine HEENT Exam Head: Present: normocephalic Eye: Present: EOMI, PERRL ENT: Present: mucous membranes moist - *Routine Neck Exam Present: supple. Absent: lymphadenopathy - *Routine Respiratory Exam Present: CTA bilaterally - *Routine Cardiovascular Exam Present: tachycardia, irregularly irregular - *Routine Abdominal Exam Present: soft, normoactive bowel sounds, tenderness (diffuse, worse in lower abdomen.) - *Routine Rectal Exam Upon rolling for rectal exam, patient had large loose bowel movement. Noted visually to have external hemorrhoid, slight irritation of skin/rash on bottom. No blood in stool. No stool impaction noted by BM on exam. - Glass in place draining rui urine - *Routine Extremities Exam Present: cyanosis (cool bilateral lower extremities. varicosities.), edema. Absent: clubbing - *Routine Skin Exam Present: warm, wounds. Numerous pressure wounds on back, see wound pictures for details. Also has significant breakdown and irritation in skin folds consistent with intertrigo/candidal infection. - *Routine Neurological Exam Present: alert, oriented X3 Assessment and Plan (1) Diverticulitis Status: Acute Category: Medical Code(s): K57.92 - Diverticulitis of intestine, part unspecified, without perforation or abscess without bleeding (2) Sacral decubitus ulcer Status: Acute Qualifiers: Pressure injury stage: stage 2 Qualified Code(s): L89.152 - Pressure ulcer of sacral region, stage 2 Category: Medical Code(s): L89.159 - Pressure ulcer of sacral region, unspecified stage (3) A-fib Status: Chronic Category: Medical Code(s): I48.91 - Unspecified atrial fibrillation (4) Severe sepsis with acute organ dysfunction Status: Acute Category: Medical Code(s): A41.9 - Sepsis, unspecified organism; R65.20 - Severe sepsis without septic shock (5) Type 2 diabetes mellitus with diabetic neuropathy, with long-term current use of insulin Status: Chronic
[2022-03-29 10:18] LABS: Lymphocytes % 8 % (10-50); Neutrophils % 92 % (42-76); Rouleaux 1+; Total Cells Counted 100
[2022-03-29 10:19] LABS: Platelet Estimate Normal
[2022-03-29 11:11] LABS: Adenovirus F 40/41, stool Not Detected (NotDetected); Astrovirus Not Detected (NotDetected); Campylobacter Not Detected (NotDetected); Clostridium Difficile A/B, PCR Not Detected (NotDetected); Cryptosporidium Not Detected (NotDetected); Cyclospora Cayetanesis Not Detected (NotDetected); Entamoeba histolytica Not Detected (NotDetected); Enteroaggregative E coli Not Detected (NotDetected); Enteropathogenic E coli Not Detected (NotDetected); Enterotoxigenic E coli Not Detected (NotDetected); Giardia lamblia Not Detected (NotDetected); Norovirus Not Detected (NotDetected); Plesimonas Shigalloides, PCR Not Detected (NotDetected); Rotavirus A Not Detected (NotDetected); Salmonella, PCR Not Detected (NotDetected); Sapovirus Not Detected (NotDetected); Shiga-like toxin E coli Not Detected (NotDetected); Shigella Enterovasive E coli Not Detected (NotDetected); Vibrio Cholerae Not Detected (NotDetected); Vibrio, PCR Not Detected (NotDetected); Yersinia Entercolitica, PCR Not Detected (NotDetected)
[2022-03-29 17:23] LABS: POC Glucose,Bedside 136 (70-110)
[2022-03-29 17:23] LABS: POC Glucose,Bedside 127 (70-110)
--- NOTE | 2022-03-29 21:01 | PC.NURSE ---
Family has been at bedside most of the day; patient has had no episodes of hypotension; HR ranges between 70-140; when elevated patient is asymptomatic and HR decreases quickly; provider is aware; patient has multiple skin issues which have been treated today; since scheduled doses of Zofran for nausea patient has had a decrease in vomitting, dry-heaves and being nauseated. She attempted to drink some tea at dinner and tolerated it. Shows no s/s of acute distress, call light in reach, bed at lowest level for safety; will continue to monitor.
[2022-03-30] VITALS: BP 103/50; PULSE 60; PULSE 76; RESP 20; TEMP 36.7; O2SAT 99
[2022-03-30 04:00] VITALS: BP 96/60; PULSE 70; PULSE 72; RESP 20; TEMP 36.9; O2SAT 96
[2022-03-30 04:49] VITALS: BMI 39.0
[2022-03-30 07:04] LABS: Basophils # 0.1 K/mm3 (0-0.2); Basophils % 0.5 % (0.1-2.0); Eosinophils % 0.2 % (0.1-12.0); Lymphocytes # 1.3 K/mm3 (0.7-4.5); Lymphocytes % 9.4 % (10-50); Mean Corpuscular HGB Conc 31.8 g/dL (31.8-35.4); Mean Corpuscular Hemoglobin 27.8 pg (27.0-31.2); Mean Corpuscular Volume 87.4 fl (81-99); Mean Platelet Volume 7.7 fl (7.4-10.4); Monocytes # 0.5 K/mm3 (0.1-1.0); Neutrophils # 11.5 K/mm3 (1.8-7.8); Neutrophils % 85.9 % (37.0-80.0); Platelet Count 275 K/mm3 (142-424); Red Blood Count 3.54 M/mm3 (4.20-5.40); Red Cell Distribution Width 16.2 % (11.5-17.5); White Blood Count 13.4 K/mm3 (4.8-10.8)
[2022-03-30 07:15] LABS: MANUAL DIFFERENTIAL MANUAL DIFFERENTIAL (MANUAL DIFF)
[2022-03-30 07:27] LABS: Alanine Aminotransferase 15 U/L (12-78); Albumin Level 2.2 g/dl (3.5-5.0); Albumin/Globulin Ratio 0.8 (1.1-1.8); Alkaline Phosphatase 70 U/L (38-126); Anion Gap 10.4 mEq/L (5-15); Aspartate Amino Transferase 25 U/L (14-36); Blood Urea Nitrogen 29 mg/dl (7-17); Calcium 7.5 mg/dl (8.4-10.2); Carbon Dioxide 19 mmol/L (22.0-30.0); Chloride 109 mmol/L (98-107); Creatinine Clearance Estimated 61 mL/min (50-200); Estimated Glomerular Filt Rate 43 ml/min (>60); GFR (African American) 53 ML/MIN (>60); Globulin 2.6 g/dL (1.3-3.2); Glucose 86 mg/dl (74-100); Magnesium 1.7 mg/dl (1.6-2.3); Potassium 3.4 mmoL/L (3.5-5.1); Sodium 135 mmol/L (136-145); Total Protein,Serum 4.8 g/dl (6.3-8.2)
[2022-03-30 07:30] LABS: Bilirubin,Total < 0.1 mg/dl (0.2-1.3)
[2022-03-30 08:00] VITALS: BP 80/52; PULSE 80; PULSE 84; RESP 18; TEMP 36.4; O2SAT 96
[2022-03-30 08:29] LABS: POC Glucose,Bedside 161 (70-110)
[2022-03-30 08:29] LABS: POC Glucose,Bedside 89 (70-110)
--- NOTE | 2022-03-30 08:31 | PC.NURSE ---
PT HAS HAD AN UNEVENTFUL NIGHT, RESTED WELL. PT HAS RECEIVED SCHEDULED ZOFRAN, NO REPORTS OF N/V. TURNING Q2HRS, NYSTATIN CREAM APPLIED TO AFFECTED AREAS. PT VOIDING PER REHMAN CATH. IV INFUSING PER ORDER. PT HAS BEEN NSR TO SIN[place] ON TELE WITH OCCASIONAL PVCS. CALL LIGHT IN REACH. FAMILY AT BEDSIDE.
[2022-03-30 08:41] LABS: Lymphocytes % 12 % (10-50); Monocytes % 3 % (2-9); Neutrophils % 85 % (42-76); Total Cells Counted 100
[2022-03-30 08:42] LABS: Hypersegmented Neutrophils 1+; Hypochromasia 1+; Platelet Estimate Normal
[2022-03-30 09:06] LABS: Hemoglobin 9.8 g/dL (12.2-16.2)
--- NOTE | 2022-03-30 10:17 | PC.NURSE ---
recmcnair from Dr. Mejía to change diet to Diabetic diet starting today at lunch
[2022-03-30 12:00] VITALS: BP 112/65; PULSE 53; PULSE 74; RESP 16; TEMP 36.6; O2SAT 99
--- NOTE | 2022-03-30 12:03 | HMH.ACPN2 ---
Internal Medicine - PN: Subj *Date: 03/30/22 *Time: 12:03 Interval history: Patient doing better this morning. Still having significant nausea but no emesis since yesterday. Tolerating p.o. intake better. Urine color less rui. Afebrile overnight. More interactive and appears better on exam this morning states she overall feels better, still complaining of abdominal discomfort. Denies shortness of breath, chest pain, headache, confusion. Exam Vital signs and Labs for Last 24 Hours: Temp Pulse Resp BP Pulse Ox 97.6 F 84 18 80/52 L 96 03/30/22 08:00 03/30/22 08:00 03/30/22 08:00 03/30/22 08:00 03/30/22 08:00 Laboratory Results - last 24 hr 03/29/22 10:24: POC Glucose 136 H 03/29/22 10:30: Stl Aeromonas (PCR) Not detected, Stl C. cayetanensis PCR Not detected, Stool Rotavirus (PCR) Not detected, Stl Adenov F 40/41 PCR Not detected, Stool Astrovirus (PCR) Not detected, Stool Campylobacter PCR Not detected, Stl C.difficile Tox PCR Not detected, Stool Cryptosporidium PCR Not detected, Stl E.coli Shiga Tox PCR Not detected, Stool E coli O157 PCR Not detected, Stl Enterotoxigenic E PCR Not detected, Stool EPEC (PCR) Not detected, Stool EAEC (PCR) Not detected, Stl E. histolytica PCR Not detected, Stool Giardia Lamblia PCR Not detected, Stool Salmonella PCR Not detected, Stool Sapovirus (PCR) Not detected, Stl P. shigelloides PCR Not detected, Stl Shigella/EIEC PCR Not detected, St Y.enterocolitica PCR Not detected, Stool Vibrio (PCR) Not detected, Stl Vibrio cholerae PCR Not detected, Stl Norovirus GI/GII PCR Not detected 03/29/22 17:13: POC Glucose 127 H 03/29/22 21:07: POC Glucose 161 H 03/30/22 06:37: WBC 13.4 H D, RBC 3.54 L, Hgb 9.8 L D, Hct 31.0 L, MCV 87.4, MCH 27.8, MCHC 31.8, RDW 16.2, Plt Count 275, MPV 7.7, Neut % (Auto) 85.9 H, Lymph % (Auto) 9.4 L, [place] % (Auto) 4.0, Eos % (Auto) 0.2, Baso % (Auto) 0.5, Neut # (Auto) 11.5 H, Lymph # (Auto) 1.3, [place] # (Auto) 0.5, Eos # (Auto) 0.0, Baso # (Auto) 0.1, Total Counted 100, Neutrophils % (Manual) 85 H, Lymphocytes % (Manual) 12, Monocytes % (Manual) 3, Hypersegmented Neuts 1+, Platelet Estimate Normal, Hypochromasia 1+ 03/30/22 06:37: Sodium 135 L, Potassium 3.4 L D, Chloride 109 H, Carbon Dioxide 19 L, Anion Gap 10.4, BUN 29 H, Creatinine 1.20 H, Estimated Creat Clear 61, Estimated GFR 43 L, Est GFR ( Amer) 53 L, Glucose 86 D, Calcium 7.5 L, Magnesium 1.7, Total Bilirubin < 0.1 L, AST 25, ALT 15, Alkaline Phosphatase 70, Total Protein 4.8 L, Albumin 2.2 L, Globulin 2.6, Albumin/Globulin Ratio 0.8 L 03/30/22 06:51: POC Glucose 89 I & O for Last 24 hours: Intake & Output 03/27/22 03/28/22 03/29/22 03/30/22 23:59 23:59 23:59 23:59 Intake Total 7290 / 7290 3901 / 3901 2080 / 2080 Output Total 1600 / 1600 600 / 690 290 / 290 Balance 5690 / 5690 3301 / 3211 1790 / 1790 Weight 81.647 kg 89.98 kg 97.296 kg 99.972 kg Microbiology Reports for the Last 24 Hours: Microbiology 03/27/22 21:25 Blood Blood Culture - Preliminary NO GROWTH AFTER 48 HOURS 03/27/22 21:25 Blood Blood Culture - Preliminary NO GROWTH AFTER 48 HOURS 03/27/22 21:00 Urine,Catheterized Urine Culture - Final Escherichia coli Narrative: - Constitutional no acute distress, obese, chronically ill appearing, cooperative - *Routine HEENT Exam Head: Present: normocephalic Eye: Present: EOMI, PERRL ENT: Present: mucous membranes moist - *Routine Neck Exam Present: supple. Absent: lymphadenopathy - *Routine Respiratory Exam Present: CTA bilaterally - *Routine Cardiovascular Exam Present: RRR, no murmur - *Routine Abdominal Exam Present: soft, normoactive bowel sounds, interval improvement in tenderness (diffuse, worse in lower abdomen.) - *Routine Extremities Exam Present: cyanosis (cool bilateral lower extremities. varicosities.), minimal edema. Absent: clubbing - *Routine Skin
[2022-03-30 16:00] VITALS: BP 94/52; PULSE 60; PULSE 68; RESP 18; TEMP 36.6; O2SAT 97
[2022-03-30 20:00] VITALS: BP 104/44; PULSE 54; PULSE 60; RESP 20; TEMP 36.8; O2SAT 98
[2022-03-31] VITALS (8 sets, daily range): BP systolic 94–120; BP diastolic 47–73; PULSE 70–110; RESP 16–22; TEMP 36.4–36.7; O2SAT 95–100; BMI 41.2
[2022-03-31 00:38] LABS: POC Glucose,Bedside 130 (70-110)
[2022-03-31 00:38] LABS: POC Glucose,Bedside 167 (70-110)
[2022-03-31 00:38] LABS: POC Glucose,Bedside 173 (70-110)
[2022-03-31 03:55] LABS: Microscopic, Urine URINE MICROSCOPIC (MICROSCOPIC)
[2022-03-31 03:57] LABS: Appearance,Urine CLOUDY (Clear); Blood, Urine 3+ (Negative); Color,Urine DK YELLOW (Yellow); Glucose,Urine (UA) Negative (Negative); Ketones,Urine Negative (Negative); Leukocyte Esterase,Urine 2+ (Negative); Nitrate,Urine Negative (Negative); Protein,Urine 1+ (Negative); Specific Gravity, Urine >= 1.030 (1.005-1.030); Urobilinogen,Urine 0.2 EU/dl (0.2)
[2022-03-31 04:01] LABS: Bilirubin,Urine Negative (Negative)
[2022-03-31 04:02] LABS: RBC,Urine 50-100 #/hpf (0-3); WBC,Urine 50-100 #/hpf (0-3); Yeast,Urine Occasional /lpf
--- NOTE | 2022-03-31 06:41 | PC.NURSE ---
PT IS ALERT AND ORIENTED X 4. PT HAD HER REHMAN CATH REMOVED ON DAYSHIFT 03/30/22 AT 1700. AT 0100 ON 03/31/22 - PT STILL HAD NOT URINATED. 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 NEW ORDERS RECEIVED TO PUT REHMAN BACK IN FOR URINARY RETENTION. 16 F REHMAN SECURED. PT IS VOIDING CLOUDY, YELLOWISH/BROWN URINE WITH SEDIMENT. UA SENT. PT HAS BEEN RECEIVING ATBX ORDERED. TURNING Q2HRS. NYSTATIN POWDER APPLIED TO AFFECTED AREAS. DRESSING TO BOTTOM ALSO CHANGED. PT C/O OF PAIN ONCE THIS SHIFT (FROM SORES ON BOTTOM). MEDICATED PER NOV W/ FAVORABLE RESULTS. CALL LIGHT IN REACH. NO NEEDS AT THIS TIME.
[2022-03-31 06:43] LABS: POC Glucose,Bedside 88 (70-110)
[2022-03-31 07:03] LABS: Basophils % 0.2 % (0.1-2.0); Eosinophils # 0.1 K/mm3 (0.0-0.4); Eosinophils % 1.6 % (0.1-12.0); Hematocrit 29.9 % (37.0-47.0); Hemoglobin 9.6 g/dL (12.2-16.2); Lymphocytes # 1.3 K/mm3 (0.7-4.5); Lymphocytes % 15.4 % (10-50); Mean Corpuscular HGB Conc 32.1 g/dL (31.8-35.4); Mean Corpuscular Hemoglobin 28.2 pg (27.0-31.2); Mean Corpuscular Volume 87.9 fl (81-99); Mean Platelet Volume 8.1 fl (7.4-10.4); Monocytes # 0.4 K/mm3 (0.1-1.0); Monocytes % 4.8 % (1.7-9.3); Neutrophils # 6.4 K/mm3 (1.8-7.8); Neutrophils % 78.1 % (37.0-80.0); Platelet Count 252 K/mm3 (142-424); Red Blood Count 3.41 M/mm3 (4.20-5.40); Red Cell Distribution Width 16.1 % (11.5-17.5); White Blood Count 8.2 K/mm3 (4.8-10.8)
[2022-03-31 07:09] LABS: Alanine Aminotransferase 13 U/L (12-78); Albumin Level 2.2 g/dl (3.5-5.0); Albumin/Globulin Ratio 0.9 (1.1-1.8); Alkaline Phosphatase 61 U/L (38-126); Anion Gap 5.4 mEq/L (5-15); Aspartate Amino Transferase 20 U/L (14-36); Blood Urea Nitrogen 24 mg/dl (7-17); Calcium 7.2 mg/dl (8.4-10.2); Carbon Dioxide 20 mmol/L (22.0-30.0); Chloride 112 mmol/L (98-107); Creatinine Clearance Estimated 37 mL/min (50-200); Estimated Glomerular Filt Rate 54 ml/min (>60); GFR (African American) 65 ML/MIN (>60); Globulin 2.5 g/dL (1.3-3.2); Glucose 87 mg/dl (74-100); Magnesium 1.7 mg/dl (1.6-2.3); Potassium 3.4 mmoL/L (3.5-5.1); Sodium 134 mmol/L (136-145); Total Protein,Serum 4.7 g/dl (6.3-8.2)
[2022-03-31 07:21] LABS: Bilirubin,Total < 0.1 mg/dl (0.2-1.3)
[2022-03-31 07:38] LABS: Thyroid Stimulating Hormone 1.52 uIU/mL (0.465-4.68)
--- NOTE | 2022-03-31 08:56 | HMH.ACPN2 ---
Internal Medicine - PN: Subj *Date: 03/31/22 *Time: 08:56 Interval history: Patient did fairly well overnight. Remains very weak. Did have a catheter put in because of urinary retention. Exam Vital signs and Labs for Last 24 Hours: Temp Pulse Resp BP Pulse Ox 97.9 F 70 22 117/73 95 03/31/22 04:00 03/31/22 04:00 03/31/22 04:00 03/31/22 04:00 03/31/22 04:00 Laboratory Results - last 24 hr 03/30/22 06:37: Hgb 9.8 L D 03/30/22 11:36: POC Glucose 130 H 03/30/22 16:59: POC Glucose 167 H 03/30/22 21:29: POC Glucose 173 H 03/31/22 02:15: Urine Color Dk yellow, Urine Appearance Cloudy, Urine pH 6.0, Ur Specific [place] >= 1.030, Urine Protein 1+, Urine Glucose (UA) Negative, Urine Ketones Negative, Urine Blood 3+, Urine Nitrate Negative, Urine Bilirubin Negative, Urine Urobilinogen 0.2, Ur Leukocyte Esterase 2+ A, Urine RBC 50-100, Urine WBC 50-100, Other Sediment Occ.hyphae, Urine Yeast Occasional 03/31/22 06:15: POC Glucose 88 03/31/22 06:25: WBC 8.2 D, RBC 3.41 L, Hgb 9.6 L, Hct 29.9 L, MCV 87.9, MCH 28.2, MCHC 32.1, RDW 16.1, Plt Count 252, MPV 8.1, Neut % (Auto) 78.1, Lymph % (Auto) 15.4, [place] % (Auto) 4.8, Eos % (Auto) 1.6, Baso % (Auto) 0.2, Neut # (Auto) 6.4, Lymph # (Auto) 1.3, [place] # (Auto) 0.4, Eos # (Auto) 0.1, Baso # (Auto) 0.0 03/31/22 06:25: Sodium 134 L, Potassium 3.4 L, Chloride 112 H, Carbon Dioxide 20 L, Anion Gap 5.4, BUN 24 H, Creatinine 1.00, Estimated Creat Clear 37, Estimated GFR 54 L, Est GFR ( Amer) 65 D, Glucose 87, Calcium 7.2 L, Magnesium 1.7, Total Bilirubin < 0.1 L, AST 20, ALT 13, Alkaline Phosphatase 61, Total Protein 4.7 L, Albumin 2.2 L, Globulin 2.5, Albumin/Globulin Ratio 0.9 L, TSH 1.52 I & O for Last 24 hours: Intake & Output 03/28/22 03/29/22 03/30/22 03/31/22 11:59 11:59 11:59 11:59 Intake Total 4580 / 4580 4421 / 4421 4270 / 4270 680 / 680 Output Total 1600 / 1600 400 / 400 490 / 490 380 / 380 Balance 2980 / 2980 4021 / 4021 3780 / 3780 300 / 300 Weight 198 lb 5.951 oz 214 lb 8 oz 220 lb 6.4 oz 232 lb 11.2 oz Narrative: Patient is pleasant, talkative. Very weak. Lungs have good air movement, heart rate regular. Abdomen soft, very minimal tenderness to left lower quadrant but no rebound or guarding, patient states he feels much better. Glass cath urine. Assessment and Plan (1) Diverticulitis Status: Acute Category: Medical Code(s): K57.92 - Diverticulitis of intestine, part unspecified, without perforation or abscess without bleeding (2) Sacral decubitus ulcer Status: Acute Qualifiers: Pressure injury stage: stage 2 Qualified Code(s): L89.152 - Pressure ulcer of sacral region, stage 2 Category: Medical Code(s): L89.159 - Pressure ulcer of sacral region, unspecified stage (3) A-fib Status: Chronic Category: Medical Code(s): I48.91 - Unspecified atrial fibrillation (4) Severe sepsis with acute organ dysfunction Status: Acute Category: Medical Code(s): A41.9 - Sepsis, unspecified organism; R65.20 - Severe sepsis without septic shock (5) Type 2 diabetes mellitus with diabetic neuropathy, with long-term current use of insulin Status: Chronic Category: Medical Code(s): E11.40 - Type 2 diabetes mellitus with diabetic neuropathy, unspecified; 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 transplanted heart: [place] heart Associated angina: without angina Qualified Code(s): I25.10 - Atherosclerotic heart disease of [place] coronary artery without angina pectoris Category: Medical Code(s): I25.10 - Atherosclerotic heart disease of [place] coronary a
--- NOTE | 2022-03-31 09:52 | SW/DCPLANNER ---
Addendum entered by [facility] 04/02/22 14:13: This patient has been approved to discharge to [facility] today. Agnieszka has requested a COVID swab prior to discharge. Addendum entered by [facility] 04/02/22 13:39: Due to bed availability changing for [facility] family prefers this facility over [facility]. Agnieszka stated that precert has already been started waiting for approval at this time. Patient could potentially discharge home this afternoon w/ hospital bed until [facility] receives approval from insurance. GENNA is currently working to speak with [facility] regarding precert process. Addendum entered by [facility] 04/02/22 07:39: Libra w/ [facility] has started precert for this patient. Addendum entered by [facility] 04/01/22 14:20: I am currently waiting to hear back from Basilia and Agnieszka w/ [facility]. Patient information has also been faxed to [facility] in [place] and [facility]. I have attempted to contact patient's granddaughter: no answer at this time. Addendum entered by [facility] 03/31/22 15:30: [facility] is unable to meet patient's needs. I will follow up with [facility] and [facility]. Addendum entered by [facility] 03/31/22 13:29: [facility] is currently at [facility] speaking with patient/family. Original Note: Patient and daughter are interested in short term placement at this time. Patient is agreeable to placement and prefers [facility] in [place]. Patient stated that if [facility] could not take her she would consider [facility] or [facility]. Patient information has been faxed to [facility] at this time. PT/OT evaluation will be completed this AM. Discharge date is unknown at this time. I will continue to update: patient, family and MD.
--- NOTE | 2022-03-31 10:03 | HMH.OTEV ---
OT Inpatient Evaluation Rehab OT IP Evaluation Start: 03/30/22 12:10 Freq: ONCE Status: Complete Protocol: Document 03/31/22 09:41 BRITTANYSHANA (Rec: 03/31/22 09:59 ANNELISE [id number]) Rehab OT IP Assessment Subjective History 76-year-old female with multiple comorbidities, nonambulatory at home, history of A. fib, diabetes, who presented to the ER via EMS. At home was found to have low blood sugar and low blood pressure. Had been feeling poorly for several days and not eating very well. Decreased urine output over the past several days. No bowel movement for 2 to 3 days . Complaining of significant abdominal pain. On arrival to the ER, work-up including labs and imaging. CT of abdomen showed concern for descending colon diverticulitis/colitis with fecal impaction in the rectosigmoid colon. Labs concerning for sepsis with elevated lactate, leukocytosis , electrolyte disturbances. Initiated on IV fluids and broad-spectrum antibiotics. Admitted to medicine for further management. On rounds this morning, she is alert and oriented x3. Daughter at bedside. States she is still feeling quite weak and fatigued. Having regular nausea. Significant belly pain, no diarrhea or fever. [facility] History I have reviewed the patient's past medical history: Yes Medical History: Reports:: Arrhythmia, Atrial Fibrillation, Diabetes Mellitus Type 1, Diabetes Mellitus Type 2, Hyperlipidemia, Peripheral Vascular Disease, S
--- NOTE | 2022-03-31 10:45 | HMH.PTEV ---
Physical Therapy Evaluation Rehab PT IP Evaluation Start: 03/30/22 12:10 Freq: ONCE Status: Active Protocol: Document 03/31/22 10:40 PWBEN (Rec: 03/31/22 10:45 [email or web address] [id number]) Subjective/History History History 76-year-old female with multiple comorbidities, nonambulatory at home, history of A. fib, diabetes, who presented to the ER via EMS. At home was found to have low blood sugar and low blood pressure. Had been feeling poorly for several days and not eating very well. Decreased urine output over the past several days. No bowel movement for 2 to 3 days . Complaining of significant abdominal pain. On arrival to the ER, work-up including labs and imaging. CT of abdomen showed concern for descending colon diverticulitis/colitis with fecal impaction in the rectosigmoid colon. Labs concerning for sepsis with elevated lactate, leukocytosis , electrolyte disturbances. Initiated on IV fluids and broad-spectrum antibiotics. Admitted to medicine for further management. Subjective Subjective Pt reports she will try to get OOB - daughter reports pt non -ambulatory but did transfer at home - daughter reports ~2 weeks ago pt feet began sliding w/ transfers - pt has multiple stage 2 wounds on buttocks showing lack of ambualtion and standing Rehab PT IP Eval Objective Appearance Patient Behavior Cooperative Patient Orientation Person,Place,Name,Birthday, Year Difficulty following instructions mild Speech Pattern Appropriate Ambulation Patient Able to Ambulate No Balance Ability to Arise Unable Sitting Balance Steady, safe Standing Balance Unsteady Dynamic Sitting Balance Ab
--- NOTE | 2022-03-31 15:29 | DIET.NUTRFU ---
RD saw patient during meal rounds, she reports fair appetite. When spoke to her about her protein needs for the wound, she complained about her chewing issues with limited teeth. RD reviewed consistency choices again and she still declined. She said she would just order softer food which eggs for breakfast, egg salad and tuna without bread. Also receiving with her the glucerna for extra proteins and calories, encouraged her to drink. looking for placement upon discharge
[2022-03-31 17:33] LABS: POC Glucose,Bedside 170 (70-110)
[2022-03-31 20:07] LABS: POC Glucose,Bedside 140 (70-110)
[2022-04-01] VITALS (8 sets, daily range): BP systolic 88–113; BP diastolic 44–69; PULSE 70–150; RESP 16–18; TEMP 36.4–36.9; O2SAT 91–100; BMI 39.9
[2022-04-01 00:34] LABS: POC Glucose,Bedside 236 (70-110)
--- NOTE | 2022-04-01 06:08 | PC.NURSE ---
No acute changes. Pt has not voiced any complaints to staff. q2 turned. Pt had large BM at beginning of shift. Pt cleaned and new dressing reapplied. F/C in place draining cloudy brownish yellow urine with sediment. Call light within reach.
[2022-04-01 06:45] LABS: POC Glucose,Bedside 122 (70-110)
--- NOTE | 2022-04-01 07:08 | ECG_ITS ---
APPROVED REPORT Exam: Resting ECG HR:149 bpm ECG Measurements Heart Rate 149 AXES QRSd 75 QRS 7 QT 143 T 0 QTc 228 Conclusion SUPRAVENTRICULAR TACHYCARDIA LOW QRS VOLTAGE IN PRECORDIAL LEADS [QRS DEFLECTION < 1.0 mV IN CHEST LEADS] MODERATE ST DEPRESSION [0.05+ mV ST DEPRESSION] ABNORMAL ECG UNCONFIRMED REPORT Electronically signed by : Johnathan Cohen MD 04/02/2022 17:58:33
--- NOTE | 2022-04-01 08:03 | HMH.ACPN2 ---
Internal Medicine - PN: Subj *Date: 04/01/22 *Time: 08:03 Interval history: This morning patient had an episode of rapid heart rate, possible flutter/fib with EKG. Fluid bolus given her sotalol was given orally. 120 nursing staff apparently her evening sotalol was held last night because of low blood pressure. Currently her heart rates back in the mid 70s and a regular rhythm and she feels better. Exam Vital signs and Labs for Last 24 Hours: Temp Pulse Resp BP Pulse Ox 98.5 F 70 18 113/69 96 04/01/22 03:40 04/01/22 04:00 04/01/22 03:40 04/01/22 03:40 04/01/22 03:40 Laboratory Results - last 24 hr 03/31/22 11:46: POC Glucose 140 H 03/31/22 17:22: POC Glucose 170 H 03/31/22 21:21: POC Glucose 236 H 04/01/22 06:35: POC Glucose 122 H I & O for Last 24 hours: Intake & Output 03/29/22 03/30/22 03/31/22 04/01/22 11:59 11:59 11:59 11:59 Intake Total 4421 / 4421 4270 / 4270 1040 / 1040 900 / 900 Output Total 400 / 400 490 / 490 480 / 480 280 / 280 Balance 4021 / 4021 3780 / 3780 560 / 560 620 / 620 Weight 214 lb 8 oz 220 lb 6.4 oz 232 lb 11.2 oz 225 lb 3 oz Microbiology Reports for the Last 24 Hours: Microbiology 03/31/22 02:15 Urine,Catheterized Urine Culture - Preliminary NO GROWTH AFTER 24 HOURS Narrative: Heart rate is regular, lungs clear, globally weak. No changes otherwise on skin exam, oropharynx is clear, neurologically she is intact but weak. Soft and nontender. Assessment and Plan (1) Diverticulitis Status: Acute Category: Medical Code(s): K57.92 - Diverticulitis of intestine, part unspecified, without perforation or abscess without bleeding (2) Sacral decubitus ulcer Status: Acute Qualifiers: Pressure injury stage: stage 2 Qualified Code(s): L89.152 - Pressure ulcer of sacral region, stage 2 Category: Medical Code(s): L89.159 - Pressure ulcer of sacral region, unspecified stage (3) A-fib Status: Chronic Category: Medical Code(s): I48.91 - Unspecified atrial fibrillation (4) Severe sepsis with acute organ dysfunction Status: Acute Category: Medical Code(s): A41.9 - Sepsis, unspecified organism; R65.20 - Severe sepsis without septic shock (5) Type 2 diabetes mellitus with diabetic neuropathy, with long-term current use of insulin Status: Chronic Category: Medical Code(s): E11.40 - Type 2 diabetes mellitus with diabetic neuropathy, unspecified; Z79.4 - medical terminologist (current) use of insulin (6) Decreased pedal pulses Status: Chronic Category: Medical Code(s): R09.89 - Other specified symptoms and signs involving the circulatory and respiratory systems (7) CAD (coronary artery disease) Problem details: Moderate nonflow limiting disease OCT 2019 Status: Chronic Qualifiers: Coronary Disease-Associated Artery/Lesion type: [place] artery [place] vs. transplanted heart: [place] heart Associated angina: without angina Qualified Code(s): I25.10 - Atherosclerotic heart disease of [place] coronary artery without angina pectoris Category: Medical Code(s): I25.10 - Atherosclerotic heart disease of [place] coronary artery without angina pectoris (8) Obesity, Class II, BMI 35-39.9 Status: Chronic Category: Medical Code(s): E66.9 - Obesity, unspecified (9) Acute kidney injury Status: Acute Category: Medical Code(s): N17.9 - Acute kidney failure, unspecified (10) UTI (urinary tract infection) Status: Acute Qualifiers: Urinary tract infection type: acute pyelonephritis Qualified Code(s): N10 - Acute pyelonephritis Category: Medical Code(s): N39.0 - Urinary tract infection, site not specified (11) Severe protein-calorie malnutrition Status: Acute Category: Medical Code(s): E43 - Unspecified severe protein-calorie malnutrition - Assessment and plan all Dx Assessment and Plan for all problems:: 1. Recurrent A. fib. Have instructed nursing staff not
[2022-04-01 09:07] LABS: Chloride 114 mmol/L (98-107)
[2022-04-01 09:08] LABS: Potassium 4.5 mmoL/L (3.5-5.1); Sodium 133 mmol/L (136-145)
[2022-04-01 09:11] LABS: Anion Gap 7.5 mEq/L (5-15); Blood Urea Nitrogen 17 mg/dl (7-17); Calcium 7.6 mg/dl (8.4-10.2); Carbon Dioxide 16 mmol/L (22.0-30.0); Creatinine Clearance Estimated 75 mL/min (50-200); Estimated Glomerular Filt Rate 61 ml/min (>60); GFR (African American) 73 ML/MIN (>60); Glucose 163 mg/dl (74-100); Magnesium 1.7 mg/dl (1.6-2.3)
--- NOTE | 2022-04-01 10:18 | HMH.ACPN ---
Internal Medicine - PN: Subj *Date: 04/01/22 *Time: 10:18 Exam Vital signs and Labs for Last 24 Hours: Temp Pulse Resp BP Pulse Ox 97.5 F L 148 H 18 100/59 L 91 L 04/01/22 08:00 04/01/22 08:00 04/01/22 08:00 04/01/22 08:00 04/01/22 08:00 Laboratory Results - last 24 hr 03/31/22 11:46: POC Glucose 140 H 03/31/22 17:22: POC Glucose 170 H 03/31/22 21:21: POC Glucose 236 H 04/01/22 06:35: POC Glucose 122 H 04/01/22 08:48: Sodium 133 L, Potassium 4.5 D, Chloride 114 H, Carbon Dioxide 16 L, Anion Gap 7.5, BUN 17 D, Creatinine 0.90, Estimated Creat Clear 75, Estimated GFR 61, Est GFR ( Amer) 73, Glucose 163 H, Calcium 7.6 L, Magnesium 1.7 I & O for Last 24 hours: Intake & Output 03/29/22 03/30/22 03/31/22 04/01/22 23:59 23:59 23:59 23:59 Intake Total 3901 / 3901 2560 / 2560 1460 / 1460 120 / 120 Output Total 600 / 690 420 / 420 350 / 630 280 / 280 Balance 3301 / 3211 2140 / 2140 1110 / 830 -160 / -160 Weight 97.296 kg 99.972 kg 105.551 kg 102.143 kg Microbiology Reports for the Last 24 Hours: Microbiology 03/31/22 02:15 Urine,Catheterized Urine Culture - Preliminary NO GROWTH AFTER 24 HOURS Assessment and Plan (1) Diverticulitis Status: Acute Category: Medical Code(s): K57.92 - Diverticulitis of intestine, part unspecified, without perforation or abscess without bleeding (2) Sacral decubitus ulcer Status: Acute Qualifiers: Pressure injury stage: stage 2 Qualified Code(s): L89.152 - Pressure ulcer of sacral region, stage 2 Category: Medical Code(s): L89.159 - Pressure ulcer of sacral region, unspecified stage (3) A-fib Status: Chronic Category: Medical Code(s): I48.91 - Unspecified atrial fibrillation (4) Severe sepsis with acute organ dysfunction Status: Acute Category: Medical Code(s): A41.9 - Sepsis, unspecified organism; R65.20 - Severe sepsis without septic shock (5) Type 2 diabetes mellitus with diabetic neuropathy, with long-term current use of insulin Status: Chronic Category: Medical Code(s): E11.40 - Type 2 diabetes mellitus with diabetic neuropathy, unspecified; Z79.4 - snf (current) use of insulin (6) Decreased pedal pulses Status: Chronic Category: Medical Code(s): R09.89 - Other specified symptoms and signs involving the circulatory and respiratory systems (7) CAD (coronary artery disease) Problem details: Moderate nonflow limiting disease OCT 2019 Status: Chronic Qualifiers: Coronary Disease-Associated Artery/Lesion type: [place] artery [place] vs. transplanted heart: [place] heart Associated angina: without angina Qualified Code(s): I25.10 - Atherosclerotic heart disease of [place] coronary artery without angina pectoris Category: Medical Code(s): I25.10 - Atherosclerotic heart disease of [place] coronary artery without angina pectoris (8) Obesity, Class II, BMI 35-39.9 Status: Chronic Category: Medical Code(s): E66.9 - Obesity, unspecified (9) Acute kidney injury Status: Acute Category: Medical Code(s): N17.9 - Acute kidney failure, unspecified (10) UTI (urinary tract infection) Status: Acute Qualifiers: Urinary tract infection type: acute pyelonephritis Qualified Code(s): N10 - Acute pyelonephritis Category: Medical Code(s): N39.0 - Urinary tract infection, site not specified (11) Severe protein-calorie malnutrition Status: Acute Category: Medical Code(s): E43 - Unspecified severe protein-calorie malnutrition The patient's infection will respond to the chosen ABx?: Yes Is the patient receiving the right drug, dose, and route?: Yes Could a more targeted ABx be ordered?: No (E COLI (+) URINE, AFEBRILE)
[2022-04-01 11:22] LABS: POC Glucose,Bedside 156 (70-110)
[2022-04-02] VITALS: BP 110/55; PULSE 67; RESP 18; TEMP 37.1; O2SAT 99
[2022-04-02 03:23] VITALS: BP 110/50; PULSE 69; RESP 18; TEMP 36.6; O2SAT 96
[2022-04-02 04:00] VITALS: PULSE 65
[2022-04-02 04:57] VITALS: BMI 39.0
--- NOTE | 2022-04-02 05:11 | PC.NURSE ---
Patient A&O x4. Patient has been NSR on tele [id number] night heart rate in 60-70's. Patient received bath dressing on coccyx and abdominal folds changed, nystatin powder applied to excoriated areas. Glass cath in place. Q2turn
[2022-04-02 08:00] VITALS: BP 128/58; PULSE 70; PULSE 73; RESP 16; TEMP 36.4; O2SAT 97
--- NOTE | 2022-04-02 08:31 | HMH.ACPN2 ---
Internal Medicine - PN: Subj *Date: 04/02/22 *Time: 08:31 Interval history: Patient did well overnight. Is in good spirits. Discussed her case with patient, daughter and granddaughter. Exam Vital signs and Labs for Last 24 Hours: Temp Pulse Resp BP Pulse Ox 97.9 F 65 18 110/50 L 96 04/02/22 03:23 04/02/22 04:00 04/02/22 03:23 04/02/22 03:23 04/02/22 03:23 Laboratory Results - last 24 hr 04/01/22 08:48: Sodium 133 L, Potassium 4.5 D, Chloride 114 H, Carbon Dioxide 16 L, Anion Gap 7.5, BUN 17 D, Creatinine 0.90, Estimated Creat Clear 75, Estimated GFR 61, Est GFR ( Amer) 73, Glucose 163 H, Calcium 7.6 L, Magnesium 1.7 04/01/22 11:11: POC Glucose 156 H I & O for Last 24 hours: Intake & Output 03/30/22 03/31/22 04/01/22 04/02/22 11:59 11:59 11:59 11:59 Intake Total 4270 / 4270 1040 / 1040 1020 / 1020 240 / 240 Output Total 490 / 490 480 / 480 580 / 580 570 / 570 Balance 3780 / 3780 560 / 560 440 / 440 -330 / -330 Weight 220 lb 6.4 oz 232 lb 11.2 oz 225 lb 3 oz 220 lb 9 oz Microbiology Reports for the Last 24 Hours: Microbiology 03/31/22 02:15 Urine,Catheterized Urine Culture - Final NO GROWTH AFTER 48 HOURS 03/27/22 21:25 Blood Blood Culture - Final NO GROWTH AFTER 5 DAYS 03/27/22 21:25 Blood Blood Culture - Final NO GROWTH AFTER 5 DAYS Narrative: Patient is alert, pleasant. Oriented x2. Anterior lung sanchez clear. Heart rate regular. Abdomen soft, obese, tender. Extremities are unchanged, skin exam unchanged. Glass catheter draining clear yellow urine with very minimal irritant type drops of blood Assessment and Plan (1) Diverticulitis Status: Acute Category: Medical Code(s): K57.92 - Diverticulitis of intestine, part unspecified, without perforation or abscess without bleeding (2) Sacral decubitus ulcer Status: Acute Qualifiers: Pressure injury stage: stage 2 Qualified Code(s): L89.152 - Pressure ulcer of sacral region, stage 2 Category: Medical Code(s): L89.159 - Pressure ulcer of sacral region, unspecified stage (3) A-fib Status: Chronic Category: Medical Code(s): I48.91 - Unspecified atrial fibrillation (4) Severe sepsis with acute organ dysfunction Status: Acute Category: Medical Code(s): A41.9 - Sepsis, unspecified organism; R65.20 - Severe sepsis without septic shock (5) Type 2 diabetes mellitus with diabetic neuropathy, with long-term current use of insulin Status: Chronic Category: Medical Code(s): E11.40 - Type 2 diabetes mellitus with diabetic neuropathy, unspecified; Z79.4 - jail (current) use of insulin (6) Decreased pedal pulses Status: Chronic Category: Medical Code(s): R09.89 - Other specified symptoms and signs involving the circulatory and respiratory systems (7) CAD (coronary artery disease) Problem details: Moderate nonflow limiting disease OCT 2019 Status: Chronic Qualifiers: Coronary Disease-Associated Artery/Lesion type: [place] artery [place] vs. transplanted heart: [place] heart Associated angina: without angina Qualified Code(s): I25.10 - Atherosclerotic heart disease of [place] coronary artery without angina pectoris Category: Medical Code(s): I25.10 - Atherosclerotic heart disease of [place] coronary artery without angina pectoris (8) Obesity, Class II, BMI 35-39.9 Status: Chronic Category: Medical Code(s): E66.9 - Obesity, unspecified (9) Acute kidney injury Status: Acute Category: Medical Code(s): N17.9 - Acute kidney failure, unspecified (10) UTI (urinary tract infection) Status: Acute Qualifiers: Urinary tract infection type: acute pyelonephritis Qualified Code(s): N10 - Acute pyelonephritis Category: Medical Code(s): N39.0 - Urinary tract infection, site not specified (11) Severe protein-calorie malnutrition Status: Acute Categ
[2022-04-02 11:13] LABS: POC Glucose,Bedside 209 (70-110)
[2022-04-02 11:13] LABS: POC Glucose,Bedside 154 (70-110)
[2022-04-02 11:14] LABS: POC Glucose,Bedside 263 (70-110)
[2022-04-02 12:00] VITALS: BP 115/54; PULSE 60; PULSE 71; RESP 16; TEMP 36.7; O2SAT 98
--- NOTE | 2022-04-02 14:01 | HMH.DCSUM ---
General - General Admission date:: 03/28/22 Discharge date: 04/02/22 HPI HPI: 76-year-old female with multiple comorbidities, nonambulatory at home, history of A. fib, diabetes, who presented to the ER via EMS. At home was found to have low blood sugar and low blood pressure. Had been feeling poorly for several days and not eating very well. Decreased urine output over the past several days. No bowel movement for 2 to 3 days. Complaining of significant abdominal pain. On arrival to the ER, work-up including labs and imaging. CT of abdomen showed concern for descending colon diverticulitis/colitis with fecal impaction in the rectosigmoid colon. Labs concerning for sepsis with elevated lactate, leukocytosis, electrolyte disturbances. Initiated on IV fluids and broad-spectrum antibiotics. Admitted to medicine for further management. On rounds this morning, she is alert and oriented x3. Daughter at bedside. States she is still feeling quite weak and fatigued. Having regular nausea. Significant belly pain, no diarrhea or fever. Hospital Course Hospital Course: Patient was admitted, met sepsis criteria, given broad-spectrum antibiotics with ceftriaxone. Did turner off to grow E. coli from Urine specimen, sensitive to several p.o. antibiotics including Macrobid, sulfa medications. Diabetes was treated with sliding scale insulin and nutritional support. Fluid boluses were given and her nausea, hypotension and general alertness level improved nicely. CT scanning of abdomen showed evidence of possible colitis versus thickening of colon wall. Impaction resolved with supportive care and her bowel movements normalized. PT evaluated her and felt that she would do better with a couple of weeks of skilled care, and a bed was found for her at the [facility]. She will be transferred there today now that insurance has pre-CERT at her admission for skilled care. Plan will be as follows: 1. She will need Macrobid 100 mg twice daily for the next 5 days to finish up her course of therapy for E. coli UTI. 2. Glass catheter is indwelling. She will need bladder training at the skilled care facility to help get this out. I would like for her to be much more mobile and be out of bed most of the day before the Glass catheter is out. 3. She will need Flagyl 500 3 times daily for the next 3 days to finish up a empiric course of colitis treatment. As an outpatient we will schedule colonoscopy versus GI evaluation because of the colon thickening. 4. She will need PT/OT evaluation, for aggressive rehabilitation for functional decline issues. She will also need dietary evaluation for diabetic diet. 5. I would like a CBC and BMP on April 04 to assess any metabolic changes. 6. Patient has chronic A. fib and is on sotalol therapy. She had 1 episode of RVR in the hospital when her sotalol has been held because of low blood pressure. Please do not hold sotalol for blood pressure criteria. Objective Vital signs: Temp Pulse Resp BP Pulse Ox 98.1 F 71 16 115/54 L 98 04/02/22 12:00 04/02/22 12:00 04/02/22 12:00 04/02/22 12:04/02/22 12:00 no acute distress, morbidly obese - *Routine HEENT Exam Head: Present: normocephalic Eye: Present: EOMI, PERRL ENT: Present: mucous membranes moist - *Routine Neck Exam Present: supple - *Routine Respiratory Exam Present: CTA bilaterally - *Routine Cardiovascular Exam Present: RRR - *Routine Abdominal Exam Present: soft, normoactive bowel sounds. Absent: tenderness - *Routine Extremities Exam Absent: cyanosis, clubbing, edema Comments: Puffy ankle and wrist edema from her poor body habitus and poor protein stores. Skin is not broken down but there are several red/unstageable irritation areas on back and buttocks that would be certainly prone to breakdown if not aggressively maintained. - *Routine Skin Exam Present: warm. Absent
--- NOTE | 2022-04-02 14:29 | DIET.NUTRFU ---
RD visited patient to review meal intake post lunch, Patient reported she did not receive Glucerna today with lunch but normally likes to drink. She requires extra protein for wound healing encouraged her to continue. She was also happy with meal intake/appetite felt she was back to baseline. But know she waiting for bed at facility. She is requiring more help and good provide additional rehab.
--- NOTE | 2022-04-02 14:35 | PC.NURSE ---
rounded rounded on patient. educated on weakness and rehab. family at bedside asked about color of urine. worried about blood. noted that urine had a lot of sediment which they thought was clots of blood. urine is also dark riu in color and educated on causes of this. no other concerns or questions noted. educated that if she gets a bed would be going by ambulance to facility. encouraged them to ring out with any other questions or concerns.
[2022-04-02 16:00] VITALS: BP 91/47; PULSE 120; PULSE 140; RESP 16; TEMP 36.4; O2SAT 98
[2022-04-02 16:28] LABS: Coronavirus 19, PCR Not Detected (NotDetected); Influenza A, PCR Not Detected (NotDetected); Influenza B, PCR Not Detected (NotDetected)
--- NOTE | 2022-04-02 17:08 | PC.NURSE ---
Pt had small BM and was noted with streaks of blood oozing from bottom. Pt does have significant hemorrhoids and unable to establish if blood is coming from BM or hemorrhoids. Also noted with HgB drop from 03/29 to 03/31, no labs drawn this AM. Dr. Cohen notified of findings with NNO given, stated has colitis and CBC will be drawn at [facility]. on 04/04/22.
[2022-04-02 17:39] LABS: POC Glucose,Bedside 269 (70-110)
[2022-04-02 17:39] LABS: POC Glucose,Bedside 177 (70-110)
--- NOTE | 2022-04-02 19:55 | PC.NURSE ---
patient leaving floor with EMS at this time.
--- NOTE | 2022-04-03 14:12 | CARE MANAGER ---
Spoke with patient's related to hospital discharge. He states he just left the skilled nursing and she is doing better. Denies any questions or concerns. DENA Ambrose
== END 2022-04-02 20:02 | DRG 391 ==
LOC: ER 03-28 00:04 → 2ND 03-28 00:06
PROVIDERS: Family Medicine; Admitting Provider Internal Medicine Adolescent Medicine; Emergency Provider Emergency Medicine; PCP Internal Medicine Adolescent Medicine; Visit Provider Internal Medicine Adolescent Medicine
DX: K57.92 Diverticulitis of intestine, part unspecified, without perforation or abscess without bleeding (principal); E43 Unspecified severe protein-calorie malnutrition; I48.20 Chronic atrial fibrillation, unspecified; N39.0 Urinary tract infection, site not specified; N17.9 Acute kidney failure, unspecified; E11.40 Type 2 diabetes mellitus with diabetic neuropathy, unspecified; L89.152 Pressure ulcer of sacral region, stage 2; E78.5 Hyperlipidemia, unspecified; E11.51 Type 2 diabetes mellitus with diabetic peripheral angiopathy without gangrene; I25.10 Atherosclerotic heart disease of native coronary artery without angina pectoris; E66.9 Obesity, unspecified; Z68.39 Body mass index [BMI] 39.0-39.9, adult; E11.22 Type 2 diabetes mellitus with diabetic chronic kidney disease; N18.9 Chronic kidney disease, unspecified; K56.41 Fecal impaction; R11.0 Nausea; B37.9 Candidiasis, unspecified; B96.20 Unspecified Escherichia coli [E. coli] as the cause of diseases classified elsewhere; R33.9 Retention of urine, unspecified; Z79.4 Long term (current) use of insulin
CPT/HCPCS: 36415; 51702; 71045; 74177; 80048; 80053; 81001; 82150; 82272; 82962; 83605; 83690; 83735; 84145; 84443; 84484; 85007; 85025; 85651; 86140; 87040; 87086; 87088; 87186; 87507; 93005; 93306; 97110; 97162; 97165; 97530; 99285; C9803; G0328; J0696; J1956; J2405; Q9967; U0003; U0005